=== PATIENT | female | born 1990 | race Caucasian/White ===

== ENCOUNTER 2016-10-11 10:43 | Emergency (ER) | payer OTHER ==
[~2016-10-11] VITALS: Wt 56.0 kg
[~2016-10-11 10:43] MED LIST: ALBU8.5H3 INH; AZIT250T94 PO; IBUP-1542 PO; LOPE2CAP PO; ONDA4TAB8 PO
[2016-10-11] MEDS ORDERED: KETOROLAC 30 MG INJ IV STA (11:08)
[2016-10-11] MEDS ORDERED: SOD CHLORIDE 0.9% 1,000 ML IV ONE (11:30)
[2016-10-11] MEDS ORDERED: METOCLOPRAMIDE 10 MG INJ IV ONE (11:30)
[2016-10-11] MEDS ORDERED: DIPHENHYDRAMINE 50 MG INJ IV ONE (11:30)
[2016-10-11] MEDS ORDERED: NAPR-260 PO (12:24)
--- NOTE | 2016-10-11 17:51 | ERD ---
ER Documentation Chief Complaint Date/Time DATE: 10/11/16 TIME: 17:49 Chief Complaint HEADACHE X1 WEEK, NO INJURY, NO N/V HPI This is a 26-year-old female presents to the ER with a headache for the last week. Headache is located on the left side of her head and radiates to the middle and then to the right side of her head. Patient states that headache has been constant and sometimes more severe than other times. Throbbing in nature patient admits to nausea she denies vomiting. She does admit to photophobia. Patient tried taking Advil however did not work. Patient has never had a headache like this before. She denies any fevers or chills. She denies any head trauma. He denies any head trauma. ROS 12 point review of systems was done, all negative except per HPI. Medications Home Meds Active Scripts Naproxen* (Naprosyn*) 500 Mg Tablet, 500 MG PO BID Y for PAIN AND/OR INFLAMMATION, #30 TAB Prov:SARAH HIGGINS 10/11/16 Ibuprofen* (Motrin*) 600 Mg Tab, 600 MG PO Q6, #30 TAB Prov:OLIMPIA ALBERTS PA-C 05/25/16 Albuterol Sulfate* (Proair HFA*) 8.5 Gm Hfa.aer.ad, 2 PUFF INH Q4, #1 INHALER Prov:OLIMPIA ALBERTS PA-C 05/25/16 Azithromycin* (Zithromax*) 250 Mg Tablet, 250 MG PO .ZPACK DIRECTED, #6 TAB TAKE 500 MG (2 TABS) THE FIRST DAY THEN 250 MG (1 TAB) DAYS 2-5 Prov:OLIMPIA ALBERTS PA-C 05/25/16 Loperamide Hcl* (Imodium*) 2 Mg Capsule, 2 MG PO .AFTER EA LOOSE BM Y for DIARRHEA, #8 TAB Prov:OLIMPIA ALBERTS PA-C 05/25/16 Ondansetron Hcl* (Zofran*) 4 Mg Tablet, 4 MG PO Q6H for NAUSEA AND/OR VOMITING, #30 TAB Prov:OLIMPIA ALBERTS PA-C 05/25/16 Allergies Allergies: Coded Allergies: No Known Allergy (Unverified , 03/03/13) PMhx/Soc Medical and Surgical Hx: pt denies Medical Hx, pt denies Surgical Hx History of Surgery: No Anesthesia Reaction: No Hx Neurological Disorder: No Hx Respiratory Disorders: No Hx Cardiac Disorders: No Hx Psychiatric Problems: No Hx Miscellaneous Medical Probl: No Hx Alcohol Use: Yes (OCCASSIONAL) Hx Substance Use: No Hx Tobacco Use: No Smoking Status: Never smoker Physical Exam Vitals Vital Signs Date Time Temp Pulse Resp B/P Pulse Ox O2 Delivery O2 Flow Rate FiO2 10/11/16 10:48 97.3 94 17 111/56 100 Physical Exam GENERAL: The patient is well developed and appropriate for usual state of health , in no apparent distress. HEENT: Atraumatic. Conjunctivae are pink. Pupils equal, round, and reactive to light. Extraocular muscles are grossly intact. Bilateral tympanic membranes are clear with no evidence of erythema, bulging or perforation. No sinus tenderness. NECK: C-spine is soft and supple. There is no cervical lymphadenopathy. CHEST: Clear to auscultation bilaterally. There are no rales, wheezes or rhonchi. HEART: Regular rate and rhythm. No murmurs, clicks, rubs or gallops. EXTREMITIES: Equal pulses bilaterally. There is no peripheral clubbing, cyanosis or edema. No focal swelling or erythema. Full range of motion. Grossly neurovascularly intact. NEURO: Alert and oriented. Cranial nerves II through XII are intact. Motor strength in all 4 extremities with 5/5 strength. Sensation grossly intact. Normal speech and gait. Negative Rhomberg. +2 DTRs. SKIN: There is no apparent rash or petechia. The skin is warm and dry. Results 24 hrs Current Medications Medications (Trade) Dose Ordered Sig/Tony Route PRN Reason Start Time Stop Time Status Last Admin Dose Admin Sodium Chloride (NS) 1,000 ml @ 1,000 mls/hr Q1H ONCE IV 10/11/16 11:30 10/11/16 12:29 DC 10/11/16 11:35 Ketorolac Tromethamine (Toradol) 30 mg ONCE STAT IV 10/11/16 11:08 10/11/16 11:11 DC 10/11/16 11:35 Metoclopramide HCl (Reglan) 10 mg ONCE ONCE IV 10/11/16 11:30 10/11/16 11:31 DC 10/11/16 11:35 Diphenhydramine HCl (Benadryl) 25 mg ONCE ONCE IV 10/11/16 11:30 10/11/16 11:31 DC 10/11/16 11:35 Procedures/MDM Differential Diagnosis includes but is not limited to; tension headache, migraine headache, cluster headache, sinus headache, nonspecific febrile headache, trigeminal neurologia, subdural hematoma, subarachnoid bleeding, meningitis, encephalitis. Patient is neurologically intact with no focal neurological deficits. This is likely a migraine headache. Patient was given a migraine cocktail and she felt completely better. She is afebrile and well- appearing. Patient will be sent home with naproxen. She is to follow-up with her primary care doctor within 1-2 days or return to ER sooner if symptoms worsen. My medical decision making was shared with the patient she understands and agrees with plan. Departure Diagnosis: Primary Impression: Headache Condition: Stable Patient Instructions: Self-Care for Headaches Additional Instructions: Call your primary care doctor TOMORROW for an appointment during the next 1-2 days.See the doctor sooner or return here if your condition worsens before your appointment time. SARAH HIGGINS Oct 11, 2016 17:51
== END 2016-10-11 12:35 | disposition home or self-care (01) ==
LOC: FTE 10:43
DX: R51 Headache (principal)
CPT/HCPCS: 96374; 96375; J1200; J1885; J2765; J7030; Z7502

== ENCOUNTER 2016-12-02 08:36 | Emergency (ER) | payer OTHER ==
[~2016-12-02] VITALS: Ht 165.1 cm; Wt 54.5 kg
[~2016-12-02 08:36] MED LIST changes: +NAPR-260 PO
[2016-12-02 08:47] VITALS: Ht 165.1 cm; Wt 54.5 kg
[2016-12-02] MEDS ORDERED: traMADol 50 MG TAB PO ONE (10:00)
--- NOTE | 2016-12-02 10:11 | ERD ---
ER Documentation Chief Complaint Date/Time DATE: 12/02/16 TIME: 10:03 Chief Complaint L rib pain and lump x 1 day HPI This is a 26-year-old female who presents to the emergency department today complaining of some left-sided rib pain and a lump that started last night. Patient states she has some shortness of breath and pain. She has not taken any medication for the pain. States that her daughter asked her if she gets stuck in her stomach and she did that and has had pain ever since that time. Denies any fevers or chills. ROS All systems reviewed and are negative except as per history of present illness. Medications Home Meds Active Scripts Naproxen* (Naprosyn*) 500 Mg Tablet, 500 MG PO BID Y for PAIN AND/OR INFLAMMATION, #30 TAB Prov:OLIMPIA ALBERTS PA-C 12/02/16 Acetaminophen* (Tylophen*) 500 Mg Capsule, 1 CAP PO Q6H Y for PAIN AND OR ELEVATED TEMP, #30 CAP Prov:OLIMPIA ALBERTS PA-C 12/02/16 Tramadol HCl (Tramadol HCl) 50 Mg Tablet, 50 MG PO Q4 Y for PAIN, #20 TAB Prov:OLIMPIA ALBERTS PA-C 12/02/16 Naproxen* (Naprosyn*) 500 Mg Tablet, 500 MG PO BID Y for PAIN AND/OR INFLAMMATION, #30 TAB Prov:SARAH HIGGINS 10/11/16 Ibuprofen* (Motrin*) 600 Mg Tab, 600 MG PO Q6, #30 TAB Prov:OLIMPIA ALBERTS PA-C 05/25/16 Albuterol Sulfate* (Proair HFA*) 8.5 Gm Hfa.aer.ad, 2 PUFF INH Q4, #1 INHALER Prov:OLIMPIA ALBERTS PA-C 05/25/16 Azithromycin* (Zithromax*) 250 Mg Tablet, 250 MG PO .ZPACK DIRECTED, #6 TAB TAKE 500 MG (2 TABS) THE FIRST DAY THEN 250 MG (1 TAB) DAYS 2-5 Prov:OLIMPIA ALBERTS PA-C 05/25/16 Loperamide Hcl* (Imodium*) 2 Mg Capsule, 2 MG PO .AFTER EA LOOSE BM Y for DIARRHEA, #8 TAB Prov:OLIMPIA ALBERTS PA-C 05/25/16 Ondansetron Hcl* (Zofran*) 4 Mg Tablet, 4 MG PO Q6H for NAUSEA AND/OR VOMITING, #30 TAB Prov:OLIMPIA ALBERTS PA-C 05/25/16 Allergies Allergies: Coded Allergies: No Known Allergy (Unverified , 03/03/13) PMhx/Soc History of Surgery: No Anesthesia Reaction: No Hx Neurological Disorder: No Hx Respiratory Disorders: No Hx Cardiac Disorders: No Hx Psychiatric Problems: No Hx Miscellaneous Medical Probl: No Hx Alcohol Use: Yes (OCCASSIONAL) Hx Substance Use: No Hx Tobacco Use: No Physical Exam Vitals Vital Signs Date Time Temp Pulse Resp B/P Pulse Ox O2 Delivery O2 Flow Rate FiO2 12/02/16 08:47 98.9 51 18 123/73 95 Physical Exam Const: No acute distress Head: Atraumatic Eyes: Normal Conjunctiva ENT: Normal External Ears, Nose and Mouth. Neck: Full range of motion..~ No meningismus. Resp: Clear to auscultation bilaterally. No absent breath sounds. No wheezing. Tenderness to palpation left side of rib cage. No evidence of lump or ball. Cardio: Regular rate and rhythm, no murmurs Abd: Soft, non tender, non distended. Normal bowel sounds. No left upper quadrant pain. Skin: No petechiae or rashes Neur: Awake and alert Psych: Normal Mood and Affect Results 24 hrs Current Medications Medications (Trade) Dose Ordered Sig/Tony Route PRN Reason Start Time Stop Time Status Last Admin Dose Admin Tramadol HCl (Ultram) 50 mg ONCE ONCE PO 12/02/16 10:00 12/02/16 10:01 DC 12/02/16 09:59 [facility] REPORT Patient: GARRICK HERNANDEZ : 1990 Age: 26 Sex: F MR #: [id number] DOS: 12/02/16 0000 Ordering MD: OLIMPIA ALBERTS PA-C Location: [facility] Room/Bed: PROCEDURE: XR Chest. CLINICAL INDICATION: chest pain, shortness of breath TECHNIQUE: Single frontal view of the chest was obtained COMPARISON: None FINDINGS: The heart and mediastinum are within normal limits. The lungs are clear. There is no pleural effusion or pneumothorax. RPTAT: AA IMPRESSION: No acute disease. .Brooks Kovacs MD, Date Time Electronically viewed and signed by .Brooks Kovacs MD, MD on 12/02/2016 10: 57 .S/ CC: OLIMPIA ALBERTS PA-C Procedures/MDM This is a 26-year-old female who presents to the emergency department today for complaints of left-sided rib pain, a "lump" and some shortness of breath. On physical exam patient has significant tenderness on the left side of her rib at the rib tip. There is no lump or mass present that I am able to palpate. Patient was complaining of shortness of breath and therefore did obtain a chest x-ray. Chest x-ray is negative. Low suspicion for pneumonia, PE, abscess, pneumothorax. Patient symptoms at this time is consistent with costochondritis. Patient has no left upper quadrant pain of low suspicion for an acute problem with her spleen. She is afebrile and otherwise well-appearing. She has had no not complain of any systemic illness recently. Patient was given tramadol here in the emergency department for pain. She was later complaining of some dizziness as she had not had anything to eat. Patient will be given a prescription for Naprosyn Tylenol and tramadol At this time the patient is stable for discharge and outpatient management. Patient should follow up with their PCP in the next 1-2 days. They may return to the emergency department sooner for any persistent or worsening of symptoms. Patient understood and agreed with the plan. Departure Diagnosis: Primary Impression: Rib pain Condition: Fair OLIMPIA ALBERTS PA-C Dec 02, 2016 10:11
--- NOTE | 2016-12-02 10:57 | RADRPT ---
PROCEDURE: XR Chest. CLINICAL INDICATION: chest pain, shortness of breath TECHNIQUE: Single frontal view of the chest was obtained COMPARISON: None FINDINGS: The heart and mediastinum are within normal limits. The lungs are clear. There is no pleural effusion or pneumothorax. RPTAT: AA IMPRESSION: No acute disease. .Brooks Kovacs MD, MD Date Time Electronically viewed and signed by .Brooks Kovacs MD, on 12/02/2016 10:57 .S/
[2016-12-02] MEDS ORDERED: TRAM50TA2 PO (11:04)
[2016-12-02] MEDS ORDERED: ACET500C5 PO (11:05)
[2016-12-02] MEDS ORDERED: NAPR-260 PO (11:05)
== END 2016-12-02 11:23 | disposition home or self-care (01) ==
LOC: FTE 08:36
DX: R07.81 Pleurodynia (principal)
CPT/HCPCS: 71010; Z7502; Z7610

== ENCOUNTER 2016-12-30 19:23 | Emergency (ER) | payer OTHER ==
[~2016-12-30] VITALS: Ht 165.1 cm; Wt 55.5 kg
[~2016-12-30 19:23] MED LIST changes: +ACET500C5 PO; +TRAM50TA2 PO
[2016-12-30 20:11] VITALS: Ht 165.1 cm; Wt 55.5 kg
[2016-12-30 21:00] LABS: URINE BLOOD (Dip) POC Trace-lysed (NEGATIVE)
--- NOTE | 2016-12-30 21:01 | ERD ---
ER Documentation Chief Complaint Date/Time DATE: 12/30/16 TIME: 20:56 Chief Complaint Back injury a week ago at work HPI 26-year-old female presents to the emergency room for lower back pain for about a week. Stated that she injured herself at work. Stated that this happened while she was lifting a mannequin when the mannequin's weight "outbalanced me and its weight put pressure to my lower back, I heard something on my back. My workers comp did an x-ray and they said that I have a low back strain." She denies urinary symptoms. She denies incontinence. She denies loss of bowel and bladder control. Stated that Flexeril and naproxen that she has been prescribed is not working. Denies headache, loss of consciousness, dizziness, blurry vision, changes in vision, photophobia, facial pain, ear pain, throat pain, difficulty swallowing, neck pain, shoulder pain, chest pain, cough, hemoptysis, abdominal pain, back pain, loss of appetite, nausea, vomiting, hematochezia, diarrhea, constipation, urinary symptoms, , the possibility of being , bladder and bowel incontinences, extremity weakness, extremity tenderness, numbness or tingling sensation, difficulty walking, recent travel, recent exposure to illness, recent antibiotic use in the last 3 months, fever, chills. Allergy: No known drug allergies. PMH: Denies. Family medical history: Denies. AO LMP: "About a month ago. I have a Nexplanon." Medications: Flexeril. Naprosyn. Surgery: Denies. 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 Denies smoking, use of alcohol, use of illegal drugs. ROS All systems reviewed and are negative except as per history of present illness. Medications Home Meds Active Scripts Hydrocodone/Acetaminophen (Lincoln 5-325 Tablet) 1 Each Tablet, 1.5 TAB PO Q6H Y for PAIN, #20 TAB Prov:SILVANA JURADO 12/30/16 Naproxen* (Naprosyn*) 500 Mg Tablet, 500 MG PO BID Y for PAIN AND/OR INFLAMMATION, #30 TAB Prov:OLIMPIA ALBERTS PA-C 12/02/16 Acetaminophen* (Tylophen*) 500 Mg Capsule, 1 CAP PO Q6H Y for PAIN AND OR ELEVATED TEMP, #30 CAP Prov:OLIMPIA ALBERTS PA-C 12/02/16 Tramadol HCl (Tramadol HCl) 50 Mg Tablet, 50 MG PO Q4 Y for PAIN, #20 TAB Prov:OLIMPIA ALBERTS PA-C 12/02/16 Naproxen* (Naprosyn*) 500 Mg Tablet, 500 MG PO BID Y for PAIN AND/OR INFLAMMATION, #30 TAB Prov:SARAH HIGGINS 10/11/16 Ibuprofen* (Motrin*) 600 Mg Tab, 600 MG PO Q6, #30 TAB Prov:OLIMPIA ALBERTS PA-C 05/25/16 Albuterol Sulfate* (Proair HFA*) 8.5 Gm Hfa.aer.ad, 2 PUFF INH Q4, #1 INHALER Prov:OLIMPIA ALBERTS PA-C 05/25/16 Azithromycin* (Zithromax*) 250 Mg Tablet, 250 MG PO .ZPACK DIRECTED, #6 TAB TAKE 500 MG (2 TABS) THE FIRST DAY THEN 250 MG (1 TAB) DAYS 2-5 Prov:OLIMPIA ALBERTS PA-C 05/25/16 Loperamide Hcl* (Imodium*) 2 Mg Capsule, 2 MG PO .AFTER EA LOOSE BM Y for DIARRHEA, #8 TAB Prov:OLIMPIA ALBERTS PA-C 05/25/16 Ondansetron Hcl* (Zofran*) 4 Mg Tablet, 4 MG PO Q6H for NAUSEA AND/OR VOMITING, #30 TAB Prov:OLIMPIA ALBERTS PA-C 05/25/16 Allergies Allergies: Coded Allergies: No Known Allergy (Unverified , 03/03/13) PMhx/Soc History of Surgery: No Anesthesia Reaction: No Hx Neurological Disorder: No Hx Respiratory Disorders: No Hx Cardiac Disorders: No Hx Psychiatric Problems: No Hx Miscellaneous Medical Probl: No Hx Alcohol Use: Yes (OCCASSIONAL) Hx Substance Use: No Hx Tobacco Use: No Smoking Status: Never smoker Physical Exam Vitals Vital Signs Date Time Temp Pulse Resp B/P Pulse Ox O2 Delivery O2 Flow Rate FiO2 12/30/16 20:11 99.5 86 18 128/58 100 Physical Exam CONSTITUTIONAL: Well-appearing; well-nourished; in no apparent distress. HEAD: Normocephalic; atraumatic. EYES: Conjunctiva clear, sclera non-icteric, EOM intact. PERRL Ears: Hearing intact. EACs clear, TMs non-bulging, non-inflamed, translucent & mobile, ossicles normal appearance, No obstructions, no erythema, no discharges Nose: No obstructions. No polyps. No external lesions. Mucosa non-inflamed. No external lesions, septum and turbinates normal. No rhinorrhea. No discharges. Frontal sinus is non-tender to palpation. Maxillary sinus is non-tender to palpation. MOUTH: Moist mucous membranes, no lesion, no obstructions, no vesicles, no thrush, patent airway Throat: Uvula in midline. Right tonsil is +1 with no erythema, no exudate. Left tonsil is +1 with no erythema, no exudate. Tolerating secretions well. Good gag reflex. Patent airway. Neck: Supple, without lesions, bruits, or adenopathy. No mass. Thyroid non- enlarged and non-tender to palpation. CHEST: Symmetrical chest. Respirations even and not labored. No retractions noted. CARDIOVASCULAR: Normal S1, S2. RRR. No murmurs, gallops. RESPIRATORY: Normal chest excursion with respiration; breath sounds clear and equal bilaterally; no wheezes, rhonchi, or rales. Breathing even and unlabored. Speaking in clear, full, and complete sentences w/ ease. ABDOMEN: Normal bowel sounds normal. Soft, round, non-distended, non-guarding, no tenderness, no rebound, no organomegaly, no masses, no pulsating abdominal mass. No hernia. No peritoneal signs. : No CVA tenderness. BACK: Symmetrical shoulder. Spine is midline without deformity, tenderness. No evidence of trauma or deformity. PELVIS: Stable pelvis. No evidence of trauma or deformity. MUSCULOSKELETAL: Normal gait and station. No misalignment, asymmetry, crepitation, defects, tenderness, masses, effusions, decreased range of motion, instability, atrophy or abnormal strength or tone in the head, neck, ribs, pelvis or extremities except tenderness to lumbar area. Positive on left straight leg test. No calf tenderness. NEUROVASCULAR: Distal pulses are present. Pedal pulse are present, equal, and normal. Capillary refills are < 2 seconds. NEUROLOGIC: Alert and oriented x4. Speaks full and clear sentences. Cranial Nerves II-XII normal. Sensation to pain, touch, and proprioception normal. Grossly unremarkable. No neurologic deficits. Romberg test is negative. Patient denies incontinence. She denies loss of bowel and bladder control. PSYCHOLOGICAL: The patients mood and manner are appropriate. No hallucinations , delusions. Not SI. Not HI. Has the capacity to decide for self SKIN: Normal for age and ethnicity; warm; dry; good turgor; no apparent lesions or exudates. No rashes, hives, discoloration. Intact. Results 24 hrs Laboratory Tests Test 12/30/16 21:00 Bedside Urine pH (LAB) 7.0 Bedside Urine Protein (LAB) Negative Bedside Urine Glucose (UA) Negative Bedside Urine Ketones (LAB) Negative Bedside Urine Blood Trace-lysed Bedside Urine Nitrite (LAB) Negative Bedside Urine Leukocyte Esterase (L 1+ Current Medications Medications (Trade) Dose Ordered Sig/Tony Route PRN Reason Start Time Stop Time Status Last Admin Dose Admin Ketorolac Tromethamine (Toradol) 30 mg ONCE STAT IM 12/30/16 21:02 12/30/16 21:03 DC 12/30/16 21:37 Procedures/MDM Examination: Please see physical examination. Disease process, medical treatment was explained to the patient and family member. They verbalized understanding and agreed with the diagnostic tests, medical treatment, and follow-up care. POC urine : Urinalysis: Treatment: Toradol IM. Re-evaluation: Denies back pain. No numbness or tingling. No neurological deficits. Stated she feels much better at this time. Consultation: Differential diagnosis: Low back strain versus sciatica. Medical decision makin-year-old female presents to the emergency room for lower back pain for about a week. Stated that she injured herself at work. Stated that this happened while she was lifting a mannequin when the mannequin' s weight "outbalanced me and its weight put pressure to my lower back, I heard something on my back. My workers comp did an x-ray and they said that I have a low back strain." She denies urinary symptoms. She denies incontinence. She denies loss of bowel and bladder control. Stated that Flexeril and naproxen that she has been prescribed is not working. Patient's complaint, patient's history about her complaint, my physical findings, my reevaluation are consistent with my final diagnosis of low back strain, sciatica. I discussed this case with supervising emergency room physician, Dr. Charly Luna agreed with my medical decision making. She also stated that I do not need to do a CT scan for this. Medications prescribed are the following: Lincoln. Patient and family member are made aware of the side effects and adverse reactions of the medications prescribed. Instructed on when to seek emergent and medical attention in case allergic/anaphylactic reactions or severe side effects and or adverse reactions to medications. Patient and family member verbalized understanding. Patient instructed Instructed to follow-up with his PCP in 24-48 hours. Patient stated that she will see her primary care physician the next 24 hours. Instructed to Call 911 for chest pain, shortness of breath. Advised to come back here in ED as soon as possible for severity of symptoms which includes but not limited to: any new symptoms; shortness of breath/difficulty of breathing; cardiovascular changes; severe gastrointestinal symptoms; signs and symptoms of bleeding and or infection; signs of compartment syndrome/neurovascular changes; neurological changes/deficits. Patient and family member verbalized understanding. Upon discharge, patient is alert and oriented x 4, speaks full and clear sentences, denies pain, has no neurological deficits, has no neurovascular deficits, difficulty of breathing. Breathing even and unlabored. Lung sounds are clear to auscultation. Not in distress. Appears comfortable. Ambulatory with steady gait. Appears satisfied with care provided here in ED. Departure Diagnosis: Primary Impression: Sciatica Additional Impression: Low back strain Condition: Stable Additional Instructions: Follow-up with PCP in the next 24-48 hours. Patient stated that she will make sure to see her own primary care physician the next 24 hours. SILVANA JURADO Dec 30, 2016 21:01
[2016-12-30] MEDS ORDERED: KETOROLAC 30 MG INJ IM STA (21:02)
[2016-12-30] MEDS ORDERED: HYDR-906 PO (21:11)
== END 2016-12-30 22:02 | disposition home or self-care (01) ==
LOC: FTE 19:23
DX: S39.92XA Unspecified injury of lower back, initial encounter (principal); X50.0XXA Overexertion from strenuous movement or load, initial encounter; Y92.89 Other specified places as the place of occurrence of the external cause
CPT/HCPCS: 81003; J1885; 96372

== ENCOUNTER 2017-03-08 03:32 | Emergency (ER) | payer OTHER ==
[~2017-03-08] VITALS: Ht 165.1 cm; Wt 56.0 kg
[~2017-03-08 03:32] MED LIST changes: +HYDR-906 PO
[2017-03-08 03:38] VITALS: Ht 165.1 cm; Wt 56.0 kg
[2017-03-08] MEDS ORDERED: ALPRAZOLAM 1 MG TAB PO ONE (04:30)
[2017-03-08] MEDS ORDERED: ALPR0.25 PO (05:10)
--- NOTE | 2017-03-08 05:35 | ERD ---
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 Patient admits to be very anxious, is going through a lot of stress lately, patient recently lost her job. Patient denies any palpitations or regular heartbeat. Patient denies any chest pain. Patient denies any dyspnea on exertion or dyspnea on lying down. ROS All systems reviewed and are negative except as per history of present illness. Medications Home Meds Active Scripts Alprazolam* (Xanax*) 0.25 Mg Tablet, 0.25 MG PO Q8H Y for ANXIETY, #10 TAB Prov:EVANGELINA FELIX NP 03/08/17 Hydrocodone/Acetaminophen ([place] 5-325 Tablet) 1 Each Tablet, 1.5 TAB PO Q6H Y for PAIN, #20 TAB Prov:SILVANA JURADO 12/30/16 Naproxen* (Naprosyn*) 500 Mg Tablet, 500 MG PO BID Y for PAIN AND/OR INFLAMMATION, #30 TAB Prov:OLIMPIA ALBERTS PA-C 12/02/16 Acetaminophen* (Tylophen*) 500 Mg Capsule, 1 CAP PO Q6H Y for PAIN AND OR ELEVATED TEMP, #30 CAP Prov:OLIMPIA ALBERTS PA-C 12/02/16 Tramadol HCl (Tramadol HCl) 50 Mg Tablet, 50 MG PO Q4 Y for PAIN, #20 TAB Prov:OLIMPIA ALBERTS PA-C 12/02/16 Naproxen* (Naprosyn*) 500 Mg Tablet, 500 MG PO BID Y for PAIN AND/OR INFLAMMATION, #30 TAB Prov:SARAH HIGGINS 10/11/16 Ibuprofen* (Motrin*) 600 Mg Tab, 600 MG PO Q6, #30 TAB Prov:OLIMPIA ALBERTS PA-C 05/25/16 Albuterol Sulfate* (Proair HFA*) 8.5 Gm Hfa.aer.ad, 2 PUFF INH Q4, #1 INHALER Prov:OLIMPIA ALBERTS PA-C 05/25/16 Azithromycin* (Zithromax*) 250 Mg Tablet, 250 MG PO .ZPACK DIRECTED, #6 TAB TAKE 500 MG (2 TABS) THE FIRST DAY THEN 250 MG (1 TAB) DAYS 2-5 Prov:OLIMPIA ALBERTS PA-C 05/25/16 Loperamide Hcl* (Imodium*) 2 Mg Capsule, 2 MG PO .AFTER EA LOOSE BM Y for DIARRHEA, #8 TAB Prov:OLIMPIA ALBERTS PA-C 05/25/16 Ondansetron Hcl* (Zofran*) 4 Mg Tablet, 4 MG PO Q6H for NAUSEA AND/OR VOMITING, #30 TAB Prov:OLIMPIA ALBERTS PA-C 05/25/16 Allergies Allergies: Coded Allergies: No Known Allergy (Unverified , 03/03/13) PMhx/Soc History of Surgery: No Anesthesia Reaction: No Hx Neurological Disorder: No Hx Respiratory Disorders: No Hx Cardiac Disorders: No Hx Psychiatric Problems: No Hx Miscellaneous Medical Probl: No Hx Alcohol Use: Yes (OCCASSIONAL) Hx Substance Use: No Hx Tobacco Use: No Smoking Status: Never smoker FmHx Family History: No coronary disease, No diabetes, No other Physical Exam Vitals Vital Signs Date Time Temp Pulse Resp B/P Pulse Ox O2 Delivery O2 Flow Rate FiO2 03/08/17 03:38 98.7 89 18 129/66 100 Physical Exam GENERAL: The patient is well developed and appropriate for usual state of health, in no apparent distress. CHEST: Clear to auscultation bilaterally. There are no rales, wheezes or rhonchi. HEART: Regular rate and rhythm. No murmurs, clicks, rubs or gallops. No S3 or S4. ABDOMEN: Soft, nontender and nondistended. Good bowel sounds. No rebound or guarding. No gross peritonitis. No gross organomegaly or masses. No Ga sign or McBurney point tenderness. BACK: No midline or flank tenderness. EXTREMITIES: Equal pulses bilaterally. There is no peripheral clubbing, cyanosis or edema. No focal swelling or erythema. Full range of motion. Grossly neurovascularly intact. NEURO: Alert and oriented. Cranial nerves 2-12 intact. Motor strength in all 4 extremities with 5/5 strength. Sensation grossly intact. Normal speech and gait. SKIN: There is no apparent rash or petechia. The skin is warm and dry. HEMATOLOGIC AND LYMPHATIC: There is no evidence of excessive bruising or lymphedema. No gross cervical, axillary, or inguinal lymphadenopathy. PSYCHIATRIC: Patient cooperative but is anxious, crying, shaking. Patient does not verbalize suicidal or homicidal ideation Results 24 hrs Current Medications Medications (Trade) Dose Ordered Sig/Tony Route PRN Reason Start Time Stop Time Status Last Admin Dose Admin Alprazolam (Xanax) 1 mg ONCE ONCE PO 03/08/17 04:30 03/08/17 04:31 DC 03/08/17 04:36 xanax was given here in emergency department, progressed very much better afterwards. Procedures/MDM Medical decision making: Patient symptoms most likely is consistent with anxiety. Low suspicion for any cardiopulmonary emergency, neurologic emergencies , patient's has no cardiac history, no risk factors. No suspicion for psychiatric emergencies, patient does not have any symptoms of homicidal or suicidal ideations. Patient was given for Xanax for help with her anxiety, is advised to follow-up with his Specialist for management of anxiety. Patient is advised to return to emergency department for any worsening symptoms Departure Diagnosis: Primary Impression: Anxiety Condition: Stable Patient Instructions: Anxiety Reaction Referrals: [facility] YOU HAVE RECEIVED A MEDICAL SCREENING EXAM AND THE RESULTS INDICATE THAT YOU DO NOT HAVE A CONDITION THAT REQUIRES URGENT TREATMENT IN THE EMERGENCY DEPARTMENT. FURTHER EVALUATION AND TREATMENT OF YOUR CONDITION CAN WAIT UNTIL YOU ARE SEEN IN YOUR DOCTORS OFFICE WITHIN THE NEXT 1-2 DAYS. IT IS YOUR RESPONSIBILITY TO MAKE AN APPOINTMENT FOR FOLOW-UP CARE. IF YOU HAVE A PRIMARY DOCTOR --you should call your primary doctor and schedule an appointment IF YOU DO NOT HAVE A PRIMARY DOCTOR YOU CAN CALL OUR PHYSICIAN REFERRAL HOTLINE AT IF YOU CAN NOT AFFORD TO SEE A PHYSICIAN YOU CAN CHOSE FROM THE FOLLOWING [facility] [address] [facility] [address] [facility]. [facility] [address] [facility] [address] [facility] [address] [facility] [address] [facility]. [facility] YOU HAVE RECEIVED A MEDICAL SCREENING EXAM AND THE RESULTS INDICATE THAT YOU DO NOT HAVE A CONDITION THAT REQUIRES URGENT TREATMENT IN THE EMERGENCY DEPARTMENT. FURTHER EVALUATION AND TREATMENT OF YOUR CONDITION CAN WAIT UNTIL YOU ARE SEEN IN YOUR DOCTORS OFFICE WITHIN THE NEXT 1-2 DAYS. IT IS YOUR RESPONSIBILITY TO MAKE AN APPOINTMENT FOR FOLOW-UP CARE. IF YOU HAVE A PRIMARY DOCTOR --you should call your primary doctor and schedule and appointment IF YOU DO NOT HAVE A PRIMARY DOCTOR YOU CAN CALL OUR PHYSICIAN REFERRAL HOTLINE AT . IF YOU CAN NOT AFFORD TO SEE A PHYSICIAN YOU CAN CHOSE FROM THE FOLLOWING [facility]: [facility] [address] [place] [address] [facility] [address] [place] [address] [facility] [address] [place] [address] EVANGELINA FELIX NP Mar 08, 2017 05:35
== END 2017-03-08 05:42 | disposition home or self-care (01) ==
LOC: FTE 03:32
DX: F41.9 Anxiety disorder, unspecified (principal)
CPT/HCPCS: Z7502; Z7610; 99283

== ENCOUNTER 2017-11-21 08:25 | Emergency (ER) | END 2017-11-21 13:23 | disposition home or self-care (01) ==

== ENCOUNTER 2018-01-10 17:45 | Emergency (ER) | END 2018-01-10 21:23 | disposition home or self-care (01) ==

== ENCOUNTER 2018-01-11 08:37 | Emergency (ER) | END 2018-01-11 11:10 | disposition home or self-care (01) ==

== ENCOUNTER 2018-05-12 20:29 | Emergency (ER) | END 2018-05-12 21:20 | disposition home or self-care (01) ==

== ENCOUNTER 2018-06-15 21:19 | Emergency (ER) | END 2018-06-15 22:40 | disposition home or self-care (01) ==

== ENCOUNTER 2018-06-28 18:18 | Emergency (ER) | END 2018-06-28 20:54 | disposition home or self-care (01) ==

== ENCOUNTER 2018-08-03 06:33 | Day surgery (SDC) | END 2018-08-03 17:34 | disposition home or self-care (01) ==

== ENCOUNTER 2018-08-08 09:25 | Emergency (ER) | END 2018-08-08 10:25 | disposition home or self-care (01) ==

== ENCOUNTER 2018-08-29 15:27 | Emergency (ER) | END 2018-08-29 18:44 | disposition home or self-care (01) ==

== ENCOUNTER 2019-01-11 19:02 | Emergency (ER) | payer OTHER ==
[~2019-01-11] VITALS: Ht 165.1 cm; Wt 61.7 kg
[~2019-01-11 19:02] MED LIST changes: -ALBU8.5H3 INH; +ALBU8.5H8 INH; +ALPR0.25 PO; +AZIT250T PO; -AZIT250T94 PO; +BACL10TA PO; +BEN25 PO; +CEPH-443 PO; +D-ME473S2 PO; +DIPH28.33 TP; +HYDR-4011 PO; -HYDR-906 PO; +IBUP-1561 PO; +LORA-441 PO; +MECL12.574 PO; +MUPI22OI2 TOP; -NAPR-260 PO; +NAPR-985 PO; +NPH10OT LEFT EAR; +OSEL75CA23 PO
[2019-01-11 19:06] VITALS: Ht 165.1 cm; Wt 61.7 kg
--- NOTE | 2019-01-11 21:10 | ERD ---
ER Documentation Chief Complaint Chief Complaint MONROE x1 week w/ CP and lower AP, no n/v/d HPI This is a 28-year-old female who presented emergency department with complaints of headache that is on and off for about a week with chest pain that is reproducing, also complains of lower abdominal pain. LMP: 12/26/2018. . Denies headache, head injury, loss of consciousness, dizziness, neck pain, neck stiffness, throat pain, difficulty swallowing, difficulty breathing lying flat, shoulder pain, chest pain, back pain, abdominal pain, nausea, vomiting, constipation, diarrhea, urinary symptoms, or possibility being , loss of bowel and bladder control, trauma, injury, falls, difficulty walking due to pain, numbness or tingling sensation, calf pain, recent travel, recent major surgery in the last 3 weeks, calf pain, recent long travel, recent exposure to any illness, recent antibiotic use in the last 3 months, fever, chills, seizures. Past medical history: Surgical history: Social: Denies smoking, use of alcoholic beverages, use of illegal drugs. ROS All systems reviewed and are negative except as per history of present illness. Medications Home Meds Active Scripts Hydroxyzine Hcl* (Hydroxyzine Hcl*) 50 Mg Tablet, 50 MG PO Q6H PRN for ANXIETY, #30 TAB Prov:SILVANA JURADO 01/11/19 Ibuprofen* (Motrin*) 600 Mg Tab, 600 MG PO Q6H PRN for PAIN AND OR ELEVATED TEMP, #30 TAB Prov:SILVANA JURADO 01/11/19 Baclofen* (Baclofen*) 10 Mg Tablet, 10 MG PO TID for 5 Days, #15 TAB Prov:JOSE GUADALUPE SUAREZ MD 08/29/18 Ibuprofen* (Motrin*) 400 Mg Tab, 400 MG PO Q8 for 5 Days, #15 TAB Prov:JOSE GUADALUPE SUAREZ MD 08/29/18 Ibuprofen* (Motrin*) 600 Mg Tab, 600 MG PO Q6H PRN for PAIN AND OR ELEVATED TEMP, #30 TAB Prov:LAURA DELA CRUZ NP 08/08/18 Tramadol HCl (Tramadol HCl) 50 Mg Tablet, 50 MG PO Q6 PRN for SEVERE PAIN LEVEL 7-10, #20 TAB Prov:EVANGELINA FELIX NP 06/15/18 Ibuprofen* (Motrin*) 600 Mg Tab, 600 MG PO Q6H PRN for PAIN AND OR ELEVATED TEMP, #30 TAB Prov:EVANGELINA FELIX NP 06/15/18 Cephalexin* (Keflex*) 500 Mg Capsule, 500 MG PO QID for 5 Days, CAP Prov:EVANGELINA FELIX NP 06/15/18 Diphenhydramine Hcl* (Benadryl*) 25 Mg Cap, 25 MG PO Q6, #30 CAP Prov:YFN ALTAMIRANO PA-C 05/12/18 Diphenhydramine Hcl/Zinc Acet (Benadryl Itch Stopping Crm) 28.3 Gm Cream.gm., 1 APPLIC TP TID, #1 TUB Prov:YFN ALTAMIRANO PA-C 05/12/18 Mupirocin* (Bactroban*) 2% -22 Gram Oint...g., 1 APPLIC TOP BID for 7 Days, EA Prov:YFN ALTAMIRANO PA-C 05/12/18 Ibuprofen* (Motrin*) 600 Mg Tab, 600 MG PO Q6, #30 TAB Prov:YFN ALTAMIRANO PA-C 05/12/18 Neomycin/Polymyxin/Hydrocort* (Cortisporin* Otic) 10 Ml Susp, 4 DROP LEFT EAR QID for 7 Days, EA Prov:JOSE GUADALUPE SUAREZ MD 01/10/18 Lorazepam* (Ativan*) 0.5 Mg Tablet, 0.5 MG PO Q8H PRN for ANXIETY, #10 TAB Prov:JOSE GUADALUPE SUAREZ MD 01/10/18 Meclizine Hcl* (Antivert*) 12.5 Mg Tab, 12.5 MG PO Q8 PRN for DIZZINESS for 5 Days, #15 TAB Prov:JOSE GUADALUPE SUAREZ MD 01/10/18 Oseltamivir Phosphate* (Tamiflu*) 75 Mg Capsule, 75 MG PO BID for 5 Days, CAP Prov:AAMIR CARBAJAL MD 11/21/17 Dextromethorphan Hb-Promethazine Hcl* (Promethazine DM* Syrup) 473 Ml Syrup, 5 ML PO Q6 PRN for COUGH for 5 Days, ML Prov:AAMIR CARBAJAL MD 11/21/17 Ibuprofen* (Motrin*) 400 Mg Tab, 400 MG PO Q6, #15 TAB Prov:AAMIR CARBAJAL MD 11/21/17 Alprazolam* (Xanax*) 0.25 Mg Tablet, 0.25 MG PO Q8H PRN for ANXIETY, #10 TAB Prov:EVANGELINA FELIX NP 03/08/17 Hydrocodone/Acetaminophen ([place] 5-325 Tablet) 1 Each Tablet, 1.5 TAB PO Q6H PRN for PAIN, #20 TAB Prov:SILVANA JURADO 12/30/16 Naproxen* (Naprosyn*) 500 Mg Tablet, 500 MG PO BID PRN for PAIN AND/OR INFLAMMATION, #30 TAB Prov:OLIMPIA ALBERTS PA-C 12/02/16 Acetaminophen* (Tylophen*) 500 Mg Capsule, 1 CAP PO Q6H PRN for PAIN AND OR ELEVATED TEMP, #30 CAP Prov:OLIMPIA ALBERTS PA-C 12/02/16 Tramadol HCl (Tramadol HCl) 50 Mg Tablet, 50 MG PO Q4 PRN for PAIN, #20 TAB Prov:OLIMPIA ALBERTS PA-C 12/02/16 Naproxen* (Naprosyn*) 500 Mg Tablet, 500 MG PO BID PRN for PAIN AND/OR INFLAMMATION, #30 TAB Prov:SARAH HIGGINS 10/11/16 Ibuprofen* (Motrin*) 600 Mg Tab, 600 MG PO Q6, #30 TAB Prov:OLIMPIA ALBERTS PA-C 05/25/16 Albuterol Sulfate* (Proair HFA*) 8.5 Gm Hfa.aer.ad, 2 PUFF INH Q4, #1 INHALER Prov:OLIMPIA ALBERTS PA-C 05/25/16 Azithromycin* (Zithromax*) 250 Mg Tablet, 250 MG PO .DestinyPACK DIRECTED, #6 TAB TAKE 500 MG (2 TABS) THE FIRST DAY THEN 250 MG (1 TAB) DAYS 2-5 Prov:OLIMPIA ALBERTS PA-C 05/25/16 Loperamide Hcl* (Imodium*) 2 Mg Capsule, 2 MG PO .AFTER EA LOOSE BM PRN for DIARRHEA, #8 TAB Prov:ARISTEOJESUSNancy De Oliveira PA-C 05/25/16 Ondansetron Hcl* (Zofran*) 4 Mg Tablet, 4 MG PO Q6H for NAUSEA AND/OR VOMITING, #30 TAB Prov:OLIMPIA QUINTANA Yennifer THOMAS 05/25/16 Allergies Allergies: Coded Allergies: No Known Allergy (Unverified , 03/03/13) PMhx/Soc History of Surgery: Yes (left breast lump removal) Anesthesia Reaction: No Hx Neurological Disorder: No Hx Respiratory Disorders: No Hx Cardiac Disorders: No Hx Psychiatric Problems: Yes (ANXIETY AND DEPRESSION) Hx Miscellaneous Medical Probl: Yes (l. breast mass, anxiety depression ) Hx Alcohol Use: No Hx Substance Use: No Hx Tobacco Use: No Physical Exam Vitals Vital Signs Date Temp Pulse Resp B/P (MAP) Pulse Ox O2 O2 Flow FiO2 Time Delivery Rate 01/11/19 98.8 70 16 118/71 99 Room Air 22:45 (87) 01/11/19 98.9 80 16 115/65 99 19:06 (82) Physical Exam Const: No acute distress Head: Atraumatic Eyes: Normal Conjunctiva ENT: Normal External Ears, Nose and Mouth. Bilateral ears: TMs are not erythematous with no bleeding. No discharge with no hearing loss. No mastoid tenderness. Nose: There is frontal and maxillary sinus tenderness to palpation. Throat: Uvula is at midline and nondisplaced. Tonsils are +1 bilaterally without redness without exudates. Tolerating secretions. Patent airway. Speaks full and clear sentences. No tripoding. Neck: Full range of motion. No meningismus. No nuchal rigidity no signs of meningeal irritation. Resp: Clear to auscultation bilaterally. No accessory muscle use in breathing. Cardio: Regular rate and rhythm, no murmurs Abd: Soft, non tender, non distended. Normal bowel sounds. Negative Ga sign but negative [place] sign (heel jar test). Negative psoas sign. Negative Rovsing sign. Able to jump 5 times without developing lower abdominal pain. Skin: No petechiae or rashes. Color appears normal for ethnicity. No skin tenting. No signs of severe dehydration. Back: No midline or flank tenderness. No CVA tenderness. Ext: No cyanosis, or edema Neur: Awake and alert. Romberg test negative. No neurological deficits. Psych: Normal Mood and Affect Results 24 hrs Laboratory Tests Test 01/11/19 21:07 Urine Color YELLOW Urine Clarity SLIGHTLY CLOUDY Urine pH 7.0 Urine Specific [place] 1.024 Urine Ketones NEGATIVE mg/dL Urine Nitrite NEGATIVE mg/dL Urine Bilirubin NEGATIVE mg/dL Urine Urobilinogen 1+ mg/dL Urine Leukocyte Esterase TRACE Ganesh/ul Urine Microscopic RBC 2 /HPF Urine Microscopic WBC 3 /HPF Urine Squamous Epithelial Cells FEW /HPF Urine Hemoglobin NEGATIVE mg/dL Urine Glucose NEGATIVE mg/dL Urine Total Protein NEGATIVE mg/dl Urine Test NEGATIVE Current Medications Medications Dose Sig/Tony Start Time Status Last (Trade) Ordered Route PRN Stop Time Admin Dose Reason Admin Meclizine 12.5 mg ONCE ONCE 01/11/19 DC HCl PO 21:30 (Antivert) 01/11/19 21:31 Ibuprofen 600 mg ONCE ONCE 01/11/19 DC 01/11/19 (Motrin) PO 22:30 22:39 01/11/19 22:31 Lorazepam 1 mg ONCE ONCE 01/11/19 DC (Ativan) PO 22:30 01/11/19 22:31 Procedures/MDM Diagnostic tests: HCG urine: Negative. Urinalysis: Negative. Culture urine: Treatment: Antivert. Motrin. Ativan. Re-evaluation: Denies chest pain. Denies auditory/visual hallucinations/delusions. Not suicidal. Not homicidal. Has the capacity to decide for herself. Has good support system at home. Differential diagnosis I have low suspicion for sepsis, meningitis, peritonsillar abscess, acute microinfarction, acute coronary syndrome, anemia. Final diagnosis: Viral sinusitis. Anxiety. Prescription: Motrin. Hydroxyzine. Follow-up with PCP in the next 24-48 hours. Come back here in the emergency department for any new symptoms or any worsening symptoms. All questions and concerns were answered. Patient and family members verbalized understanding and agreed with plan of care. Hemodynamically stable on discharge. Departure Diagnosis: Primary Impression: Multiple complaints Additional Impressions: Viral sinusitis Anxiety Costochondritis Condition: Stable Additional Instructions: Follow-up with PCP in the next 24-48 hours. Come back here in the emergency department for any new symptoms or any worsening symptoms. SILVANA JURADO Jan 11, 2019 21:10
[2019-01-11] MEDS ORDERED: MECLIZINE 12.5 MG TAB PO ONE (21:30)
[2019-01-11] MEDS ORDERED: IBUP-1542 PO (22:29)
[2019-01-11] MEDS ORDERED: LORAZEPAM 1 MG TAB PO ONE (22:30)
[2019-01-11] MEDS ORDERED: IBUPROFEN 600 MG TAB PO ONE (22:30)
[2019-01-11] MEDS ORDERED: HYDR50TA15 PO (22:30)
[2019-01-11 22:45] VITALS: BP 118/71; PULSE 70; RESP 16
== END 2019-01-11 22:45 | disposition home or self-care (01) ==
LOC: FTE 19:02
DX: M94.0 Chondrocostal junction syndrome [Tietze] (principal); J32.9 Chronic sinusitis, unspecified; F41.9 Anxiety disorder, unspecified
CPT/HCPCS: 81001; 84703; 87086; Z7502; Z7610; 99283

== ENCOUNTER 2019-01-22 15:03 | Emergency (ER) | payer OTHER ==
[~2019-01-22] VITALS: Ht 167.6 cm; Wt 61.0 kg
[~2019-01-22 15:03] MED LIST changes: +HYDR50TA15 PO
[2019-01-22 15:15] VITALS: BP 111/56; PULSE 69; RESP 18; Ht 167.6 cm; Wt 61.0 kg
[2019-01-22] MEDS ORDERED: ACETAMINOPHEN 325 MG TAB PO STA (16:25)
--- NOTE | 2019-01-22 17:29 | ERD ---
ER Documentation Chief Complaint Chief Complaint vag bleeding pelvic cramping am, 5wks LMP 12/26/18 HPI G4, P3 female in her fifth week of presents with complaint of abdominal pain and vaginal bleeding started today. States that she is noticed the blood in her urine when she wipes but is not going through pads. States that she does have an OB. Denies any nausea, vomiting, diarrhea, fevers, dysuria, flank pain. Denies medical problems. Denies allergies. ROS All systems reviewed and are negative except as per history of present illness. Medications Home Meds Active Scripts Acetaminophen* (Tylophen*) 500 Mg Capsule, 2 CAP PO Q8H PRN for PAIN AND OR EL EVATED TEMP, #20 CAP Prov:CECILIO GARNER 01/22/19 Hydroxyzine Hcl* (Hydroxyzine Hcl*) 50 Mg Tablet, 50 MG PO Q6H PRN for ANXIETY, #30 TAB Prov:SILVANA JURADO 01/11/19 Ibuprofen* (Motrin*) 600 Mg Tab, 600 MG PO Q6H PRN for PAIN AND OR ELEVATED TEMP, #30 TAB Prov:SILVANA JURADO F 01/11/19 Baclofen* (Baclofen*) 10 Mg Tablet, 10 MG PO TID for 5 Days, #15 TAB Prov:JOSE GUADALUPE SUAREZ MD 08/29/18 Ibuprofen* (Motrin*) 400 Mg Tab, 400 MG PO Q8 for 5 Days, #15 TAB Prov:JOSE GUADALUPE SUAREZ MD 08/29/18 Ibuprofen* (Motrin*) 600 Mg Tab, 600 MG PO Q6H PRN for PAIN AND OR ELEVATED TE MP, #30 TAB Prov:LAURA DELA CRUZ NP 08/08/18 Tramadol HCl (Tramadol HCl) 50 Mg Tablet, 50 MG PO Q6 PRN for SEVERE PAIN LEVEL 7-10, #20 TAB Prov:EVANGELINA FELIX NP 06/15/18 Ibuprofen* (Motrin*) 600 Mg Tab, 600 MG PO Q6H PRN for PAIN AND OR ELEVATED TEM P, #30 TAB Prov:EVANGELINA FELIX NP 06/15/18 Cephalexin* (Keflex*) 500 Mg Capsule, 500 MG PO QID for 5 Days, CAP Prov:EVANGELINA FELIX MAE T. DUAL RATE SUPERVISOR 06/15/18 Diphenhydramine Hcl* (Benadryl*) 25 Mg Cap, 25 MG PO Q6, #30 CAP Prov:PIERRE ALTAMIRANOMOUSTAPHA THOMAS 05/12/18 Diphenhydramine Hcl/Zinc Acet (Benadryl Itch Stopping Crm) 28.3 Gm Cream.gm., 1 APPLIC TP TID, #1 TUB Prov:ADARSHYFN THOMAS 05/12/18 Mupirocin* (Bactroban*) 2% -22 Gram Oint...g., 1 APPLIC TOP BID for 7 Days, EA Prov:ADARSHYFN THOMAS 05/12/18 Ibuprofen* (Motrin*) 600 Mg Tab, 600 MG PO Q6, #30 TAB Prov:ADARSHYFN THOMAS 05/12/18 Neomycin/Polymyxin/Hydrocort* (Cortisporin* Otic) 10 Ml Susp, 4 DROP LEFT EAR QID for 7 Days, EA Prov:JOSE GUADALUPE SUAREZ MD 01/10/18 Lorazepam* (Ativan*) 0.5 Mg Tablet, 0.5 MG PO Q8H PRN for ANXIETY, #10 TAB Prov:JOSE GUADALUPE SUAREZ MD 01/10/18 Meclizine Hcl* (Antivert*) 12.5 Mg Tab, 12.5 MG PO Q8 PRN for DIZZINESS for 5 Days, #15 TAB Prov:JOSE GUADALUPE SUAREZ MD 01/10/18 Oseltamivir Phosphate* (Tamiflu*) 75 Mg Capsule, 75 MG PO BID for 5 Days, CAP Prov:AAMIR CARBAJAL MD 11/21/17 Dextromethorphan Hb-Promethazine Hcl* (Promethazine DM* Syrup) 473 Ml Syrup, 5 ML PO Q6 PRN for COUGH for 5 Days, ML Prov:AAMIR CARBAJAL MD 11/21/17 Ibuprofen* (Motrin*) 400 Mg Tab, 400 MG PO Q6, #15 TAB Prov:AAMIR CARBAJAL MD 11/21/17 Alprazolam* (Xanax*) 0.25 Mg Tablet, 0.25 MG PO Q8H PRN for ANXIETY, #10 TAB Prov:ELVIRAEVANGELINAMargarita Galvan NP 03/08/17 Hydrocodone/Acetaminophen ([place] 5-325 Tablet) 1 Each Tablet, 1.5 TAB PO Q6H PRN for PAIN, #20 TAB Prov:SILVANA JURADO 12/30/16 Naproxen* (Naprosyn*) 500 Mg Tablet, 500 MG PO BID PRN for PAIN AND/OR INFLAMMATION, #30 TAB Prov:OLIMPIA ALBERTS PA-C 12/02/16 Acetaminophen* (Tylophen*) 500 Mg Capsule, 1 CAP PO Q6H PRN for PAIN AND OR ELEVATED TEMP, #30 CAP Prov:OLIMPIA ALBERTS PA-C 12/02/16 Tramadol HCl (Tramadol HCl) 50 Mg Tablet, 50 MG PO Q4 PRN for PAIN, #20 TAB Prov:OLIMPIA ALBERTS PA-C 12/02/16 Naproxen* (Naprosyn*) 500 Mg Tablet, 500 MG PO BID PRN for PAIN AND/OR INFLAMMATION, #30 TAB Prov:SARAH HIGGINS 10/11/16 Ibuprofen* (Motrin*) 600 Mg Tab, 600 MG PO Q6, #30 TAB Prov:OLIMPIA ALBERTS PA-C 05/25/16 Albuterol Sulfate* (Proair HFA*) 8.5 Gm Hfa.aer.ad, 2 PUFF INH Q4, #1 INHALER Prov:OLIMPIA ALBERTS PA-C 05/25/16 Azithromycin* (Zithromax*) 250 Mg Tablet, 250 MG PO .KELCK DIRECTED, #6 TAB TAKE 500 MG (2 TABS) THE FIRST DAY THEN 250 MG (1 TAB) DAYS 2-5 Prov:OLIMPIA ALBERTS PA-C 05/25/16 Loperamide Hcl* (Imodium*) 2 Mg Capsule, 2 MG PO .AFTER EA LOOSE BM PRN for DIARRHEA, #8 TAB Prov:OLIMPIA ALBERTS PA-C 05/25/16 Ondansetron Hcl* (Zofran*) 4 Mg Tablet, 4 MG PO Q6H for NAUSEA AND/OR VOMITING, #30 TAB Prov:OLIMPIA ALBERTS PA-C 05/25/16 Allergies Allergies: Coded Allergies: No Known Allergy (Unverified , 03/03/13) PMhx/Soc History of Surgery: Yes (left breast lump removal) Anesthesia Reaction: No Hx Neurological Disorder: No Hx Respiratory Disorders: No Hx Cardiac Disorders: No Hx Psychiatric Problems: Yes (ANXIETY AND DEPRESSION) Hx Miscellaneous Medical Probl: Yes (l. breast mass, anxiety depression ) Hx Alcohol Use: No Hx Substance Use: No Hx Tobacco Use: No FmHx Family History: No diabetes, No coronary disease, No other Physical Exam Vitals Vital Signs Date Temp Pulse Resp B/P (MAP) Pulse Ox O2 O2 Flow FiO2 Time Delivery Rate 01/22/19 98.2 69 18 111/56 100 15:15 (74) Physical Exam Const: No acute distress Head: Atraumatic Eyes: Normal Conjunctiva ENT: Normal External Ears, Nose and Mouth. Neck: Full range of motion. No meningismus. Resp: Clear to auscultation bilaterally Cardio: Regular rate and rhythm, no murmurs Abd: Tenderness to palpation without guarding rigidity in the upper left quadrant. No McBurney's. Patient ambulatory without difficulty. Able to jump up and down. Skin: No petechiae or rashes Back: No midline or flank tenderness Ext: No cyanosis, or edema Neur: Awake and alert Psych: Normal Mood and Affect Result Diagram: 01/22/19 1639 01/22/19 1639 Results 24 hrs Laboratory Tests Test 01/22/19 16:28 01/22/19 16:39 POC Beta HCG, Qualitative NEGATIVE White Blood Count 11.7 10^3/ul Red Blood Count 4.52 10^6/ul Hemoglobin 13.7 g/dl Hematocrit 40.0 % Mean Corpuscular Volume 88.5 fl Mean Corpuscular Hemoglobin 30.3 pg Mean Corpuscular Hemoglobin Concent 34.3 g/dl Red Cell Distribution Width 11.9 % Platelet Count 337 10^3/UL Mean Platelet Volume 10.0 fl Immature Granulocytes % 0.300 % Neutrophils % 74.0 % Lymphocytes % 18.5 % Monocytes % 5.9 % Eosinophils % 0.9 % Basophils % 0.4 % Nucleated Red Blood Cells % 0.0 /100WBC Immature Granulocytes # 0.040 10^3/ul Neutrophils # 8.6 10^3/ul Lymphocytes # 2.2 10^3/ul Monocytes # 0.7 10^3/ul Eosinophils # 0.1 10^3/ul Basophils # 0.1 10^3/ul Nucleated Red Blood Cells # 0.0 10^3/ul Sodium Level 141 mmol/L Potassium Level 3.9 mmol/L Chloride Level 105 mmol/L Carbon Dioxide Level 28 mmol/L Anion Gap 8 Blood Urea Nitrogen 11 mg/dl Creatinine 0.57 mg/dl Est Glomerular Filtrat Rate mL/min > 60 mL/min Glucose Level 102 mg/dl Calcium Level 10.4 mg/dl Total Bilirubin 0.3 mg/dl Direct Bilirubin 0.00 mg/dl Indirect Bilirubin 0.3 mg/dl Aspartate Amino Transf (AST/SGOT) 25 IU/L Alanine Aminotransferase (ALT/SGPT) 32 IU/L Alkaline Phosphatase 66 IU/L Total Protein 8.1 g/dl Albumin 4.8 g/dl Globulin 3.30 g/dl Albumin/Globulin Ratio 1.45 Beta HCG, Quantitative 8.3 mIU/ml Current Medications Medications Dose Sig/Tony Start Time Status Last (Trade) Ordered Route PRN Stop Time Admin Dose Reason Admin 1,000 mg ONCE STAT 01/22/19 DC 01/22/19 Acetaminophen PO 16:25 16:33 (Tylenol 01/22/19 16:29 Tab) Procedures/MDM DIAGNOSTIC IMAGING REPORT Patient: GARRICK HERNANDEZ : 1990 Age: 28 Sex: F MR #: [id number] DOS: 01/22/19 1625 Ordering MD: CECILIO GARNER Location: [facility] Room/Bed: PROCEDURE: US Pelvis. CLINICAL INDICATION: vaginal bleeding TECHNIQUE: Multiple sonographic images of the pelvis were obtained utilizing a transabdominal and endovaginal technique. The images were reviewed on a PACS workstation. COMPARISON: None. FINDINGS: The uterus is normal in size and demonstrates a normal appearance of the myometrium. The uterus measures 7.6 x 4.4 x 3.9 cm in size. The endometrial stripe is homogeneous in appearance and has the thickness of 7 mm. There are small Nabothian cysts in the cervix. No intrauterine gestation is noted. The ovaries are normal in size and echogenicity. Normal Doppler flow is identified in both ovaries. The right ovary measures 2.6 x 1.2-1.5 cm. The left ovary measures 3.0 x 1.1 x 2.0 cm. There is a 1.4 cm hemorrhagic cyst in the left ovary No free fluid is present within the pelvis.. RPTAT: AA IMPRESSION: No intrauterine gestation visualized. Small hemorrhagic cyst in the left ovary. Differential diagnosis includes early , missed or ectopic . Follow-up ultrasound and HCG levels is recommended. .Brooks Kovacs MD, MD Date Time Electronically viewed and signed by .Brooks Kovacs MD, MD on 01/22/2019 17:09 .S/ CC: CECILIO GARNER [id number] ER Course: CBC, UA, beta quant HCG, type and RH, vaginal US/abdominal US ordered. MDM: Ultrasound showed no intrauterine . I discussed the case of the laborist on-call Dr. Kuhn and he stated that since the beta-hCG was less than 10 it was not even considered a therefore there is no possibility of ectopic. I discussed this with the patient and told her that she needed a follow-up with her OB. Patient stated that she had an OB appointment tomorrow and she would follow-up. Patient also stated that she no longer had any abdominal pain. I reevaluated the patient at discharge and there was no tenderness to palpation of the abdomen.. I have low suspicion for ectopic based on results of US, hemodynamic stability, physical exam and patient history. I have low suspicion for septic , pyelonephritis, placenta abrupta, appendicitis, cholecystitis, bowel obstruction, ovarian torsion, symptomatic anema, PID, surgical abdomen, or other life threatening conditions based on patient history, physical exam, and lab/imaging results. Patient discharged with strict ER precautions. Patient advised to follow up with PMD and training mgr. All questions answered at discharge. Departure Diagnosis: Primary Impression: Vaginal bleeding in patient at less than 20 weeks gestation Additional Impression: Abdominal pain affecting Condition: Stable CECILIO GARNER Jan 22, 2019 17:29
[2019-01-22] MEDS ORDERED: ACET500C5 PO (18:29)
== END 2019-01-22 18:58 | disposition home or self-care (01) ==
LOC: FTE 15:03
DX: N93.9 Abnormal uterine and vaginal bleeding, unspecified (principal); R10.9 Unspecified abdominal pain; R10.2 Pelvic and perineal pain
CPT/HCPCS: 36415; 76801; 76817; 80053; 81001; 81025; 84702; 85025; 86900; 86901; Z7502; Z7610

== ENCOUNTER 2019-03-20 22:33 | Emergency (ER) | payer OTHER ==
[~2019-03-20] VITALS: Ht 165.1 cm; Wt 62.3 kg
[2019-03-20 22:38] VITALS: BP 110/56; PULSE 77; RESP 18; Ht 165.1 cm; Wt 62.3 kg
--- NOTE | 2019-03-21 02:19 | ERD ---
ER Documentation Chief Complaint Chief Complaint L SIDE AP X'S 1 DAY; 6 WEEKS PG HPI 28-year-old female G5, P3 currently 6 weeks by LMP who presents with complaint of left-sided pelvic pain as well as vaginal spotting. Patient states he has been having left-sided pelvic pain radiating to left flank along with vaginal spotting with patches of tiny small clots. Patient was seen by her TELEGRAPH DISPATCHER earlier today had an ultrasound which she states TELEGRAPH DISPATCHER was concerned for fetus not growing at expected rate. She does not reports of ultrasound or lab testing. Patient told by TELEGRAPH DISPATCHER to proceed to ED if she has worsening of her pelvic pain. States she had a miscarriage earlier this year on January 22. She otherwise denies fevers, chills, dizziness, lightheadedness, chest pain, shortness of breath, dyspnea, nausea, vomiting, diarrhea. ROS All systems reviewed and are negative except as per history of present illness. Medications Home Meds Active Scripts Ibuprofen* (Motrin*) 400 Mg Tab, 400 MG PO Q6, #15 TAB Prov:AAMIR CARBAJAL MD 03/27/19 Acetaminophen with Codeine (Acetaminophen-Cod #3 Tablet) 1 Each Tablet, 1 TAB PO Q6H PRN for PAIN, #10 TAB Prov:AAMIR CARBAJAL MD 03/27/19 Cephalexin* (Keflex*) 500 Mg Capsule, 500 MG PO BID for 7 Days, CAP Prov:ROSE DYER PA-C 03/21/19 Acetaminophen* (Tylophen*) 500 Mg Capsule, 2 CAP PO Q8H PRN for PAIN AND OR ELEVATED TEMP, #20 CAP Prov:CECILIO GARNER 01/22/19 Hydroxyzine Hcl* (Hydroxyzine Hcl*) 50 Mg Tablet, 50 MG PO Q6H PRN for ANXIETY, #30 TAB Prov:PASILAAVI JOYNERAR F 01/11/19 Ibuprofen* (Motrin*) 600 Mg Tab, 600 MG PO Q6H PRN for PAIN AND OR ELEVATED TEMP, #30 TAB Prov:PASILABANAVIAR F 01/11/19 Baclofen* (Baclofen*) 10 Mg Tablet, 10 MG PO TID for 5 Days, #15 TAB Prov:JOSE GUADALUPE SUAREZ MD 08/29/18 Ibuprofen* (Motrin*) 400 Mg Tab, 400 MG PO Q8 for 5 Days, #15 TAB Prov:JOSE GUADALUPE SUAREZ MD 08/29/18 Ibuprofen* (Motrin*) 600 Mg Tab, 600 MG PO Q6H PRN for PAIN AND OR ELEVATED TEMP, #30 TAB Prov:JOSE DE JESUSLAURA Chaim BLANCAS 08/08/18 Tramadol HCl (Tramadol HCl) 50 Mg Tablet, 50 MG PO Q6 PRN for SEVERE PAIN LEVEL 7-10, #20 TAB Prov:EVANGELINA FELIX NP 06/15/18 Ibuprofen* (Motrin*) 600 Mg Tab, 600 MG PO Q6H PRN for PAIN AND OR ELEVATED T EMP, #30 TAB Prov:EVANGELINA FELIX GROCERY BAGGER 06/15/18 Cephalexin* (Keflex*) 500 Mg Capsule, 500 MG PO QID for 5 Days, CAP Prov:EVANGELINA FELIX NP 06/15/18 Diphenhydramine Hcl* (Benadryl*) 25 Mg Cap, 25 MG PO Q6, #30 CAP Prov:YFN ALTAMIRANO PA-C 05/12/18 Diphenhydramine Hcl/Zinc Acet (Benadryl Itch Stopping Crm) 28.3 Gm Cream.gm., 1 APPLIC TP TID, #1 TUB Prov:YFN ALTAMIRANO PA-C 05/12/18 Mupirocin* (Bactroban*) 2% -22 Gram Oint...g., 1 APPLIC TOP BID for 7 Days, EA Prov:YFN ALTAMIRANO PA-C 05/12/18 Ibuprofen* (Motrin*) 600 Mg Tab, 600 MG PO Q6, #30 TAB Prov:YFN ALTAMIRANO PA-C 05/12/18 Neomycin/Polymyxin/Hydrocort* (Cortisporin* Otic) 10 Ml Susp, 4 DROP LEFT EAR QID for 7 Days, EA Prov:JOSE GUADALUPE SUAREZ MD 01/10/18 Lorazepam* (Ativan*) 0.5 Mg Tablet, 0.5 MG PO Q8H PRN for ANXIETY, #10 TAB Prov:JOSE GUADALUPE SUAREZ MD 01/10/18 Meclizine Hcl* (Antivert*) 12.5 Mg Tab, 12.5 MG PO Q8 PRN for DIZZINESS for 5 Days, #15 TAB Prov:JOSE GUADALUPE SUAREZ MD 01/10/18 Oseltamivir Phosphate* (Tamiflu*) 75 Mg Capsule, 75 MG PO BID for 5 Days, CAP Prov:AAMIR CARBAJAL MD 11/21/17 Dextromethorphan Hb-Promethazine Hcl* (Promethazine DM* Syrup) 473 Ml Syrup, 5 ML PO Q6 PRN for COUGH for 5 Days, ML Prov:AAMIR CARBAJAL MD 11/21/17 Ibuprofen* (Motrin*) 400 Mg Tab, 400 MG PO Q6, #15 TAB Prov:AAMIR CARBAJAL MD 11/21/17 Alprazolam* (Xanax*) 0.25 Mg Tablet, 0.25 MG PO Q8H PRN for ANXIETY, #10 TAB Prov:EVANGELINA FELIX NP 03/08/17 Hydrocodone/Acetaminophen ([place] 5-325 Tablet) 1 Each Tablet, 1.5 TAB PO Q6H PRN for PAIN, #20 TAB Prov:SILVANA JURADO 12/30/16 Naproxen* (Naprosyn*) 500 Mg Tablet, 500 MG PO BID PRN for PAIN AND/OR INFLAMMATION, #30 TAB Prov:OLIMPIA ALBERTS PA-C 12/02/16 Acetaminophen* (Tylophen*) 500 Mg Capsule, 1 CAP PO Q6H PRN for PAIN AND OR ELEVATED TEMP, #30 CAP Prov:OLIMPIA ALBERTS PA-C 12/02/16 Tramadol HCl (Tramadol HCl) 50 Mg Tablet, 50 MG PO Q4 PRN for PAIN, #20 TAB Prov:OLIMPIA ALBERTS PA-C 12/02/16 Naproxen* (Naprosyn*) 500 Mg Tablet, 500 MG PO BID PRN for PAIN AND/OR INFLAMMATION, #30 TAB Prov:SARAH HIGGINS 10/11/16 Ibuprofen* (Motrin*) 600 Mg Tab, 600 MG PO Q6, #30 TAB Prov:OLIMPIA ALBERTS PA-C 05/25/16 Albuterol Sulfate* (Proair HFA*) 8.5 Gm Hfa.aer.ad, 2 PUFF INH Q4, #1 INHALER Prov:OLIMPIA ALBERTS PA-C 05/25/16 Azithromycin* (Zithromax*) 250 Mg Tablet, 250 MG PO .ZPACK DIRECTED, #6 TAB TAKE 500 MG (2 TABS) THE FIRST DAY THEN 250 MG (1 TAB) DAYS 2-5 Prov:OLIMPIA ALBERTS PA-C 05/25/16 Loperamide Hcl* (Imodium*) 2 Mg Capsule, 2 MG PO .AFTER EA LOOSE BM PRN for DIARRHEA, #8 TAB Prov:OLIMPIA ALBERTS PA-C 16 Ondansetron Hcl* (Zofran*) 4 Mg Tablet, 4 MG PO Q6H for NAUSEA AND/OR VOMITING, #30 TAB Prov:OLIMPIA ALBERTS PA-C 05/25/16 Allergies Allergies: Coded Allergies: No Known Allergy (Unverified , 03/03/13) PMhx/Soc History of Surgery: Yes (left breast lump removal) Anesthesia Reaction: No Hx Neurological Disorder: No Hx Respiratory Disorders: No Hx Cardiac Disorders: No Hx Psychiatric Problems: Yes (ANXIETY AND DEPRESSION) Hx Miscellaneous Medical Probl: Yes (l. breast mass, anxiety depression ) Hx Alcohol Use: No Hx Substance Use: No Hx Tobacco Use: No Smoking Status: Never smoker FmHx Family History: No diabetes, No coronary disease, No other Physical Exam Vitals Physical Exam Const: No acute distress Head: Atraumatic Eyes: Normal Conjunctiva ENT: Normal External Ears, Nose and Mouth. Neck: Full range of motion. No meningismus. Resp: Clear to auscultation bilaterally Cardio: Regular rate and rhythm, no murmurs Abd: Soft, tender to left pelvic region. Left flank tenderness, non distended. Normal bowel sounds Skin: No petechiae or rashes Back: No midline or flank tenderness Ext: No cyanosis, or edema Neur: Awake and alert Psych: Normal Mood and Affect Results 24 hrs Laboratory Tests Test 03/21/19 02:33 White Blood Count 10.5 10^3/ul Red Blood Count 4.10 10^6/ul Hemoglobin 12.6 g/dl Hematocrit 36.7 % Mean Corpuscular Volume 89.5 fl Mean Corpuscular Hemoglobin 30.7 pg Mean Corpuscular Hemoglobin Concent 34.3 g/dl Red Cell Distribution Width 11.7 % Platelet Count 294 10^3/UL Mean Platelet Volume 10.2 fl Immature Granulocytes % 0.300 % Neutrophils % 67.0 % Lymphocytes % 25.2 % Monocytes % 5.9 % Eosinophils % 1.2 % Basophils % 0.4 % Nucleated Red Blood Cells % 0.0 /100WBC Immature Granulocytes # 0.030 10^3/ul Neutrophils # 7.0 10^3/ul Lymphocytes # 2.6 10^3/ul Monocytes # 0.6 10^3/ul Eosinophils # 0.1 10^3/ul Basophils # 0.0 10^3/ul Nucleated Red Blood Cells # 0.0 10^3/ul Urine Color YELLOW Urine Clarity SLIGHTLY CLOUDY Urine pH 6.0 Urine Specific [place] 1.013 Urine Ketones TRACE mg/dL Urine Nitrite NEGATIVE mg/dL Urine Bilirubin NEGATIVE mg/dL Urine Urobilinogen NEGATIVE mg/dL Urine Leukocyte Esterase 2+ Ganesh/ul Urine Microscopic RBC 8 /HPF Urine Microscopic WBC 42 /HPF Urine Hemoglobin 3+ mg/dL Urine Glucose NEGATIVE mg/dL Urine Total Protein NEGATIVE mg/dl Beta HCG, Quantitative 36829.0 mIU/ml Procedures/MDM This patient in the first trimester of presented to the emergency department with complaints of vaginal bleeding and abdominal pain. VSS. A pelvic ultrasound 1. Single early intrauterine gestation of approximately 6 weeks 2 days without evidence for a pole. Clinical correlation and follow-up ultrasound 1-2 weeks is suggested. 2. The left ovary was not visualized. Clinical Impression: Threatened Miscarriage vs vaginal spotting and early supportive measures and return indications discussed with patient. See DCI. DCI: Bed rest. Pelvic Rest. Drink plenty of fluids. Follow up with your TELEGRAPH DISPATCHER in 1-2 days, Return here or with your OB in 48 hours for repeat BHCG level, Bring a copy of your results from today's visit Return to the ER for increased bleeding (more than 1 pad an hour for consecutive hours), increased abdominal cramping, fever, passage of products of conception, lightheadedness or any other concerns DISPOSITION PLAN: We discussed follow up with the patient's primary care doctor within 24 to 48 hours. Patient counseled regarding my diagnostic impression and care plan. Prior to discharge all questions answered. Pt agrees with treatment plan and understands strict return precautions. Precautionary instructions provided including instructions to return to the ER if not improving or for any worsening or changing symptoms or concerns. Disclaimer: Inadvertent spelling and grammatical errors are likely due to EHR/dictation software use and do not reflect on the overall quality of patient care. Also, please note that the electronic time recorded on this note does not necessarily reflect the actual time of the patient encounter. Departure Diagnosis: Primary Impression: Vaginal bleeding Condition: Stable Patient Instructions: Vaginal Bleed in Additional Instructions: Call your primary care doctor TOMORROW for an appointment during the next 2-3 days.See the doctor sooner or return here if your condition worsens before your appointment time. ROSE DYER PA-C Mar 21, 2019 02:19
[2019-03-21] MEDS ORDERED: CEPH-443 PO (04:18)
== END 2019-03-21 04:30 | disposition home or self-care (01) ==
LOC: FTE 22:33
DX: O20.9 Hemorrhage in early pregnancy, unspecified (principal); R10.2 Pelvic and perineal pain; Z3A.01 Less than 8 weeks gestation of pregnancy
CPT/HCPCS: 36415; 76801; 76817; 81001; 84702; 85025; 86900; 86901; 87086

== ENCOUNTER 2019-03-23 11:48 | Emergency (ER) | payer OTHER ==
[~2019-03-23] VITALS: Ht 165.1 cm; Wt 62.2 kg
[2019-03-23 11:55] VITALS: BP 103/53; PULSE 66; RESP 16; Ht 165.1 cm; Wt 62.2 kg
--- NOTE | 2019-03-23 12:52 | ERD ---
ER Documentation Chief Complaint Chief Complaint SEEN HERE DEREK FOR VAG BLEED, 6WKS PREG, STILL BLEEDING/CRAMPING HPI Is a 28-year-old female who was seen here 3 days ago for vaginal bleeding during . She states is about 6 weeks and she is G5, P3 with 1 miscarriage. She continues to have intermittent cramping and light vaginal bleeding. She states she passed a small clot this morning but since then it has just been dark stains when she wipes. No fever. No dysuria or frequency. No vomiting. ROS All systems reviewed and are negative except as per history of present illness. Medications Home Meds Active Scripts Cephalexin* (Keflex*) 500 Mg Capsule, 500 MG PO BID for 7 Days, CAP Prov:ROSE DYER PA-C 03/21/19 Acetaminophen* (Tylophen*) 500 Mg Capsule, 2 CAP PO Q8H PRN for PAIN AND OR ELEVATED TEMP, #20 CAP Prov:CECILIO GARNER 01/22/19 Hydroxyzine Hcl* (Hydroxyzine Hcl*) 50 Mg Tablet, 50 MG PO Q6H PRN for ANXIETY, #30 TAB Prov:SILVANA JURADO 01/11/19 Ibuprofen* (Motrin*) 600 Mg Tab, 600 MG PO Q6H PRN for PAIN AND OR ELEVATED TEMP, #30 TAB Prov:SILVANA JURADO 01/11/19 Baclofen* (Baclofen*) 10 Mg Tablet, 10 MG PO TID for 5 Days, #15 TAB Prov:JOSE GUADALUPE SUAREZ MD 08/29/18 Ibuprofen* (Motrin*) 400 Mg Tab, 400 MG PO Q8 for 5 Days, #15 TAB Prov:JOSE GUADALUPE SUAREZ MD 08/29/18 Ibuprofen* (Motrin*) 600 Mg Tab, 600 MG PO Q6H PRN for PAIN AND OR ELEVATED TEMP, #30 TAB Prov:LAURA DELA CRUZ NP 08/08/18 Tramadol HCl (Tramadol HCl) 50 Mg Tablet, 50 MG PO Q6 PRN for SEVERE PAIN LEVEL 7-10, #20 TAB Prov:EVANGELINA FELIX NP 06/15/18 Ibuprofen* (Motrin*) 600 Mg Tab, 600 MG PO Q6H PRN for PAIN AND OR ELEVATED TEMP, #30 TAB Prov:EVANGELINA FELIX DRESSING ROOM PORTER 06/15/18 Cephalexin* (Keflex*) 500 Mg Capsule, 500 MG PO QID for 5 Days, CAP Prov:ENEELIELEVANGELINA HERZOG DRESSING ROOM PORTER 06/15/18 Diphenhydramine Hcl* (Benadryl*) 25 Mg Cap, 25 MG PO Q6, #30 CAP Prov:PIERRE ALTAMIRANOMOUSTAPHA PADRON-Morenita 05/12/18 Diphenhydramine Hcl/Zinc Acet (Benadryl Itch Stopping Crm) 28.3 Gm Cream.gm., 1 APPLIC TP TID, #1 TUB Prov:ADARSHFYN PADRON-Moren[place] 05/12/18 Mupirocin* (Bactroban*) 2% -22 Gram Oint...g., 1 APPLIC TOP BID for 7 Days, EA Prov:ADARSHYFN THOMAS 05/12/18 Ibuprofen* (Motrin*) 600 Mg Tab, 600 MG PO Q6, #30 TAB Prov:ADARSHYFN THOMAS 05/12/18 Neomycin/Polymyxin/Hydrocort* (Cortisporin* Otic) 10 Ml Susp, 4 DROP LEFT EAR QID for 7 Days, EA Prov:JOSE GUADALUPE SUAREZ MD 01/10/18 Lorazepam* (Ativan*) 0.5 Mg Tablet, 0.5 MG PO Q8H PRN for ANXIETY, #10 TAB Prov:JOSE GUADALUPE SUAREZ MD 01/10/18 Meclizine Hcl* (Antivert*) 12.5 Mg Tab, 12.5 MG PO Q8 PRN for DIZZINESS for 5 Days, #15 TAB Prov:JOSE GUADALUPE SUAREZ MD 01/10/18 Oseltamivir Phosphate* (Tamiflu*) 75 Mg Capsule, 75 MG PO BID for 5 Days, CAP Prov:AAMIR CARBAJAL MD 11/21/17 Dextromethorphan Hb-Promethazine Hcl* (Promethazine DM* Syrup) 473 Ml Syrup, 5 ML PO Q6 PRN for COUGH for 5 Days, ML Prov:AAMIR CARBAJAL MD 11/21/17 Ibuprofen* (Motrin*) 400 Mg Tab, 400 MG PO Q6, #15 TAB Prov:AAMIR CARBAJAL MD 11/21/17 Alprazolam* (Xanax*) 0.25 Mg Tablet, 0.25 MG PO Q8H PRN for ANXIETY, #10 TAB Prov:EVANGELINA FELIX NP 03/08/17 Hydrocodone/Acetaminophen ([place] 5-325 Tablet) 1 Each Tablet, 1.5 TAB PO Q6H PRN for PAIN, #20 TAB Prov:SILVANA JURADO 12/30/16 Naproxen* (Naprosyn*) 500 Mg Tablet, 500 MG PO BID PRN for PAIN AND/OR INFLAMMATION, #30 TAB Prov:OLIMPIA ALBERTS PA-C 12/02/16 Acetaminophen* (Tylophen*) 500 Mg Capsule, 1 CAP PO Q6H PRN for PAIN AND OR ELEVATED TEMP, #30 CAP Prov:OLIMPIA ALBERTS PA-C 12/02/16 Tramadol HCl (Tramadol HCl) 50 Mg Tablet, 50 MG PO Q4 PRN for PAIN, #20 TAB Prov:OLIMPIA ALBERTS PA-C 12/02/16 Naproxen* (Naprosyn*) 500 Mg Tablet, 500 MG PO BID PRN for PAIN AND/OR INFLAMMATION, #30 TAB Prov:SARAH HIGGINS 10/11/16 Ibuprofen* (Motrin*) 600 Mg Tab, 600 MG PO Q6, #30 TAB Prov:OLIMPIA ALBERTS PA-C 05/25/16 Albuterol Sulfate* (Proair HFA*) 8.5 Gm Hfa.aer.ad, 2 PUFF INH Q4, #1 INHALER Prov:OLIMPIA ALBERTS PA-C 05/25/16 Azithromycin* (Zithromax*) 250 Mg Tablet, 250 MG PO .ALEX DIRECTED, #6 TAB TAKE 500 MG (2 TABS) THE FIRST DAY THEN 250 MG (1 TAB) DAYS 2-5 Prov:OLIMPIA ALBERTS PA-C 05/25/16 Loperamide Hcl* (Imodium*) 2 Mg Capsule, 2 MG PO .AFTER EA LOOSE BM PRN for DIARRHEA, #8 TAB Prov:OLIMPIA ALBERTS PA-C 05/25/16 Ondansetron Hcl* (Zofran*) 4 Mg Tablet, 4 MG PO Q6H for NAUSEA AND/OR VOMITING, #30 TAB Prov:OLIMPIA ALBERTS PA-C 05/25/16 Allergies Allergies: Coded Allergies: No Known Allergy (Unverified , 03/03/13) PMhx/Soc History of Surgery: Yes (left breast lump removal) Anesthesia Reaction: No Hx Neurological Disorder: No Hx Respiratory Disorders: No Hx Cardiac Disorders: No Hx Psychiatric Problems: Yes (ANXIETY AND DEPRESSION) Hx Miscellaneous Medical Probl: Yes (l. breast mass, anxiety depression ) Hx Alcohol Use: No Hx Substance Use: No Hx Tobacco Use: No Smoking Status: Never smoker FmHx Family History: No diabetes Physical Exam Vitals Vital Signs Date Temp Pulse Resp B/P (MAP) Pulse Ox O2 O2 Flow FiO2 Time Delivery Rate 03/23/19 98.2 66 16 103/53 100 11:55 (70) Physical Exam INITIAL VITAL SIGNS: Reviewed by me GENERAL: Awake, alert and oriented x 4, well appearing, nontoxic, speaking in full sentences. No acute distress RESPIRATORY: Clear to auscultation bilaterally. Symmetric chest wall rise. No wheezing or rales. No accessory muscle use. CV: Regular rate and rhythm. No murmurs, rubs, or gallops. ABDOMEN: Soft, non-distended. Nontender. Negative [place]. Negative McBurneys point tenderness. No CVA tenderness bilaterally. No guarding. No rebound. Results 24 hrs Laboratory Tests Test 03/23/19 13:10 Urine Color STRAW Urine Clarity SLIGHTLY CLOUDY Urine pH 6.0 Urine Specific [place] 1.002 Urine Ketones NEGATIVE mg/dL Urine Nitrite NEGATIVE mg/dL Urine Bilirubin NEGATIVE mg/dL Urine Urobilinogen NEGATIVE mg/dL Urine Leukocyte Esterase TRACE Ganesh/ul Urine Microscopic RBC 1 /HPF Urine Microscopic WBC 3 /HPF Urine Bacteria FEW /HPF Urine Hemoglobin 3+ mg/dL Urine Glucose NEGATIVE mg/dL Urine Total Protein NEGATIVE mg/dl Beta HCG, Quantitative 63091.0 mIU/ml Procedures/MDM The differential diagnosis includes but is not limited to threatened/i ncomplete/inevitable/complete , ectopic , non- related bleeding, and others. Repeat beta-hCG and ultrasound ordered. Beta-hCG on Tuesday was 26,568 today it is decreased to 25,993. Patient's ultrasound is essentially unchanged from her previous one. She plans to follow-up with [facility] on Tuesday. She was given copy of lab and ultrasound report. Patient counseled regarding my diagnostic impression and care plan. Prior to discharge all questions answered. Pt agrees with treatment plan and understands strict return precautions. Pt is instructed to follow up with primary care provider within 24- 48 hours. Precautionary instructions provided including instructions to return to the ER if not improving or for any worsening or changing symptoms or concerns. Departure Diagnosis: Primary Impression: Vaginal bleeding in patient at less than 20 weeks gestation Condition: Stable MEENAKSHI GANNON PA-C Mar 23, 2019 12:52
== END 2019-03-23 14:56 | disposition home or self-care (01) ==
LOC: FTE 11:48
DX: O20.9 Hemorrhage in early pregnancy, unspecified (principal); Z3A.01 Less than 8 weeks gestation of pregnancy
CPT/HCPCS: 36415; 76801; 76817; 81001; 84702; Z7502

== ENCOUNTER 2019-03-24 04:04 | Emergency (ER) | payer OTHER ==
[~2019-03-24] VITALS: Ht 165.1 cm; Wt 61.1 kg
[2019-03-24 04:08] VITALS: Ht 165.1 cm; Wt 61.1 kg
[2019-03-24] MEDS ORDERED: ACETAMINOPHEN 500 MG TAB PO STA (04:48)
--- NOTE | 2019-03-24 05:10 | ERD ---
ER Documentation Chief Complaint Chief Complaint here yesterday for vag bleed; dc back for more bleed; 6 weeks preg HPI Patient is a 28-year-old female, G5, P3, A1 approximately 6 weeks , who presents the ER for concerns of vaginal bleeding and blood clot passage x4 hours. Patient was seen here yesterday and told that she likely had a miscarriage versus beta-hCG was downtrending. Patient states she woke up in the middle the night and started to have pelvic cramping and blood clot passage. Patient reports using 3 pads thus far. Patient denies any lightheadedness or dizziness. Patient denies any chest pain or shortness of breath. ROS All systems reviewed and are negative except as per history of present illness. Medications Home Meds Active Scripts Cephalexin* (Keflex*) 500 Mg Capsule, 500 MG PO BID for 7 Days, CAP Prov:ROSE DYER PA-C 03/21/19 Acetaminophen* (Tylophen*) 500 Mg Capsule, 2 CAP PO Q8H PRN for PAIN AND OR ELEVATED TEMP, #20 CAP Prov:CECILIO GARNER 01/22/19 Hydroxyzine Hcl* (Hydroxyzine Hcl*) 50 Mg Tablet, 50 MG PO Q6H PRN for ANXIETY, #30 TAB Prov:SILVANA JURADO F 01/11/19 Ibuprofen* (Motrin*) 600 Mg Tab, 600 MG PO Q6H PRN for PAIN AND OR ELEVATED TEMP, #30 TAB Prov:PASILAAVI JOYNERAR F 01/11/19 Baclofen* (Baclofen*) 10 Mg Tablet, 10 MG PO TID for 5 Days, #15 TAB Prov:JOSE GUADALUPE SUAREZ MD 08/29/18 Ibuprofen* (Motrin*) 400 Mg Tab, 400 MG PO Q8 for 5 Days, #15 TAB Prov:JOSE GUADALUPE SUAREZ MD 08/29/18 Ibuprofen* (Motrin*) 600 Mg Tab, 600 MG PO Q6H PRN for PAIN AND OR ELEVATED TEMP, #30 TAB Prov:LAURA DELA CRUZ NP 08/08/18 Tramadol HCl (Tramadol HCl) 50 Mg Tablet, 50 MG PO Q6 PRN for SEVERE PAIN LEVEL 7-10, #20 TAB Prov:EVANGELINA FELIX NP 06/15/18 Ibuprofen* (Motrin*) 600 Mg Tab, 600 MG PO Q6H PRN for PAIN AND OR ELEVATED TEMP, #30 TAB Prov:EVANGELINA FELIX FLIGHT CONTROL SPECIALIST 06/15/18 Cephalexin* (Keflex*) 500 Mg Capsule, 500 MG PO QID for 5 Days, CAP Prov:EVANGELINA FELIX NP 06/15/18 Diphenhydramine Hcl* (Benadryl*) 25 Mg Cap, 25 MG PO Q6, #30 CAP Prov:YFN ALTAMIRANO PA-C 05/12/18 Diphenhydramine Hcl/Zinc Acet (Benadryl Itch Stopping Crm) 28.3 Gm Cream.gm., 1 APPLIC TP TID, #1 TUB Prov:YFN ALTAMIRANO PA-C 05/12/18 Mupirocin* (Bactroban*) 2% -22 Gram Oint...g., 1 APPLIC TOP BID for 7 Days, EA Prov:YFN ALTAMIRANO PA-C 05/12/18 Ibuprofen* (Motrin*) 600 Mg Tab, 600 MG PO Q6, #30 TAB Prov:YFN ALTAMIRANO PA-C 05/12/18 Neomycin/Polymyxin/Hydrocort* (Cortisporin* Otic) 10 Ml Susp, 4 DROP LEFT EAR QID for 7 Days, EA Prov:JOSE GUADALUPE SUAREZ MD 01/10/18 Lorazepam* (Ativan*) 0.5 Mg Tablet, 0.5 MG PO Q8H PRN for ANXIETY, #10 TAB Prov:JOSE GUADALUPE SUAREZ MD 01/10/18 Meclizine Hcl* (Antivert*) 12.5 Mg Tab, 12.5 MG PO Q8 PRN for DIZZINESS for 5 Days, #15 TAB Prov:JOSE GUADALUPE SUAREZ MD 01/10/18 Oseltamivir Phosphate* (Tamiflu*) 75 Mg Capsule, 75 MG PO BID for 5 Days, CAP Prov:AAMIR CARBAJAL MD 11/21/17 Dextromethorphan Hb-Promethazine Hcl* (Promethazine DM* Syrup) 473 Ml Syrup, 5 ML PO Q6 PRN for COUGH for 5 Days, ML Prov:AAMIR CARBAJAL MD 11/21/17 Ibuprofen* (Motrin*) 400 Mg Tab, 400 MG PO Q6, #15 TAB Prov:AAMIR CARBAJAL MD 11/21/17 Alprazolam* (Xanax*) 0.25 Mg Tablet, 0.25 MG PO Q8H PRN for ANXIETY, #10 TAB Prov:EVANGELINA FELIX NP 03/08/17 Hydrocodone/Acetaminophen ([place] 5-325 Tablet) 1 Each Tablet, 1.5 TAB PO Q6H PRN for PAIN, #20 TAB Prov:SILVANA JURADO 12/30/16 Naproxen* (Naprosyn*) 500 Mg Tablet, 500 MG PO BID PRN for PAIN AND/OR INFLAMMATION, #30 TAB Prov:OLIMPIA ALBERTS PA-C 12/02/16 Acetaminophen* (Tylophen*) 500 Mg Capsule, 1 CAP PO Q6H PRN for PAIN AND OR ELEVATED TEMP, #30 CAP Prov:OLIMPIA ALBERTS PA-C 12/02/16 Tramadol HCl (Tramadol HCl) 50 Mg Tablet, 50 MG PO Q4 PRN for PAIN, #20 TAB Prov:OLIMPIA ALBERTS PA-C 12/02/16 Naproxen* (Naprosyn*) 500 Mg Tablet, 500 MG PO BID PRN for PAIN AND/OR INFLAMMATION, #30 TAB Prov:SARAH HIGGINS 10/11/16 Ibuprofen* (Motrin*) 600 Mg Tab, 600 MG PO Q6, #30 TAB Prov:OLIMPIA ALBERTS PA-C 05/25/16 Albuterol Sulfate* (Proair HFA*) 8.5 Gm Hfa.aer.ad, 2 PUFF INH Q4, #1 INHALER Prov:OLIMPIA ALBERTS PA-C 05/25/16 Azithromycin* (Zithromax*) 250 Mg Tablet, 250 MG PO .EKLCK DIRECTED, #6 TAB TAKE 500 MG (2 TABS) THE FIRST DAY THEN 250 MG (1 TAB) DAYS 2-5 Prov:OLIMPIA ALBERTS PA-C 05/25/16 Loperamide Hcl* (Imodium*) 2 Mg Capsule, 2 MG PO .AFTER EA LOOSE BM PRN for DI ARRHEA, #8 TAB Prov:ARISTEOJESUSNancy De Oliveira PA-C 05/25/16 Ondansetron Hcl* (Zofran*) 4 Mg Tablet, 4 MG PO Q6H for NAUSEA AND/OR VOMITING, #30 TAB Prov:OLIMPIA ALBERTSLorena THOMAS 05/25/16 Allergies Allergies: Coded Allergies: No Known Allergy (Unverified , 03/03/13) PMhx/Soc History of Surgery: Yes (left breast lump removal) Anesthesia Reaction: No Hx Neurological Disorder: No Hx Respiratory Disorders: No Hx Cardiac Disorders: No Hx Psychiatric Problems: Yes (ANXIETY AND DEPRESSION) Hx Miscellaneous Medical Probl: Yes (l. breast mass, anxiety depression ) Hx Alcohol Use: No Hx Substance Use: No Hx Tobacco Use: No Smoking Status: Never smoker FmHx Family History: No diabetes Physical Exam Vitals Vital Signs Date Temp Pulse Resp B/P (MAP) Pulse Ox O2 O2 Flow FiO2 Time Delivery Rate 03/24/19 98.2 89 20 113/51 99 04:08 (71) Physical Exam GENERAL: Well-developed, well-nourished female. Appears in no acute distress. Speaking in full sentences. HEAD: Normocephalic, atraumatic. EYES: Pupils are equally reactive bilaterally. EOMs grossly intact. No conjunctival erythema. ENT: Moist mucous membranes. No uvula deviation. No kissing tonsils. NECK: Supple. No meningismus. Normal range of motion of the neck. LUNG: Clear to auscultation bilaterally. No rhonchi, wheezing, rales or coarse breath sounds. HEART: Regular rate and rhythm. No murmurs, rubs or gallops. ABDOMEN: Tender to palpation over the suprapubic region.. Positive bowel sounds in all four quadrants. No rebound tenderness, no guarding. (-) McBurney's point tenderness. No CVA tenderness. SLAB WORKER: TYLER Nugent present during this part of the exam. Single small blood clot noted within the vaginal vault. No active hemorrhaging at this time. EXTREMITIES: Equal pulses bilaterally. No peripheral clubbing, cyanosis or dayne a. No unilateral leg swelling. NEUROLOGIC: Alert and oriented. Moving all four extremities without any difficulty. Normal speech. Steady gait. SKIN: Normal color. Warm and dry. No rashes or lesions. Result Diagram: 03/24/19 0516 Results 24 hrs Laboratory Tests Test 03/24/19 05:16 White Blood Count 8.5 10^3/ul Red Blood Count 3.76 10^6/ul Hemoglobin 11.6 g/dl Hematocrit 33.3 % Mean Corpuscular Volume 88.6 fl Mean Corpuscular Hemoglobin 30.9 pg Mean Corpuscular Hemoglobin Concent 34.8 g/dl Red Cell Distribution Width 11.6 % Platelet Count 280 10^3/UL Mean Platelet Volume 10.1 fl Immature Granulocytes % 0.400 % Neutrophils % 70.4 % Lymphocytes % 19.7 % Monocytes % 7.4 % Eosinophils % 1.5 % Basophils % 0.6 % Nucleated Red Blood Cells % 0.0 /100WBC Immature Granulocytes # 0.030 10^3/ul Neutrophils # 6.0 10^3/ul Lymphocytes # 1.7 10^3/ul Monocytes # 0.6 10^3/ul Eosinophils # 0.1 10^3/ul Basophils # 0.1 10^3/ul Nucleated Red Blood Cells # 0.0 10^3/ul Urine Color RED Urine Clarity CLOUDY Urine pH 5.0 Urine Specific [place] 1.025 Urine Ketones NEGATIVE mg/dL Urine Nitrite NEGATIVE mg/dL Urine Bilirubin NEGATIVE mg/dL Urine Urobilinogen NEGATIVE mg/dL Urine Leukocyte Esterase NEGATIVE Ganesh/ul Urine Microscopic RBC > 182 /HPF Urine Microscopic WBC 0 /HPF Urine Squamous Epithelial Cells FEW /HPF Urine Mucus MODERATE /HPF Urine Hemoglobin 3+ mg/dL Urine Glucose NEGATIVE mg/dL Urine Total Protein 2+ mg/dl Current Medications Medications Dose Sig/Tony Start Time Status Last (Trade) Ordered Route PRN Stop Time Admin Dose Reason Admin 1,000 mg ONCE STAT 03/24/19 DC 03/24/19 Acetaminophen PO 04:48 05:27 (Tylenol 03/24/19 04:49 Tab) Procedures/MDM Blood work is pending at this time. Pelvic ultrasound pending at this time. Case will be signed out to oncoming provider Oliver Timmons PA-C. Departure Diagnosis: Primary Impression: Miscarriage Additional Impression: Vaginal bleeding in patient at less than 20 weeks ges... Condition: Fair Patient Instructions: Bleeding During Early Referrals: COMMUNITY CLINICS YOU HAVE RECEIVED A MEDICAL SCREENING EXAM AND THE RESULTS INDICATE THAT YOU DO NOT HAVE A CONDITION THAT REQUIRES URGENT TREATMENT IN THE EMERGENCY DEPARTMENT. FURTHER EVALUATION AND TREATMENT OF YOUR CONDITION CAN WAIT UNTIL YOU ARE SEEN IN YOUR DOCTORS OFFICE WITHIN THE NEXT 1-2 DAYS. IT IS YOUR RESPONSIBILITY TO MAKE AN APPOINTMENT FOR FOLOW-UP CARE. IF YOU HAVE A PRIMARY DOCTOR --you should call your primary doctor and schedule an appointment IF YOU DO NOT HAVE A PRIMARY DOCTOR YOU CAN CALL OUR PHYSICIAN REFERRAL HOTLINE AT IF YOU CAN NOT AFFORD TO SEE A PHYSICIAN YOU CAN CHOSE FROM THE FOLLOWING [facility] [address] [facility] [address] [facility] [address] [facility] [address] [facility] [address] [facility] [address] [facility] [facility] YOU HAVE RECEIVED A MEDICAL SCREENING EXAM AND THE RESULTS INDICATE THAT YOU DO NOT HAVE A CONDITION THAT REQUIRES URGENT TREATMENT IN THE EMERGENCY DEPARTMENT. FURTHER EVALUATION AND TREATMENT OF YOUR CONDITION CAN WAIT UNTIL YOU ARE SEEN IN YOUR DOCTORS OFFICE WITHIN THE NEXT 1-2 DAYS. IT IS YOUR RESPONSIBILITY TO MAKE AN APPOINTMENT FOR FOLOW-UP CARE. IF YOU HAVE A PRIMARY DOCTOR --you should call your primary doctor and schedule and appointment IF YOU DO NOT HAVE A PRIMARY DOCTOR YOU CAN CALL OUR PHYSICIAN REFERRAL HOTLINE AT . IF YOU CAN NOT AFFORD TO SEE A PHYSICIAN YOU CAN CHOSE FROM THE FOLLOWING [facility]: [facility] [address] [place] [address] [facility] [address] [place] [address] [facility] [address] [place] [address] Additional Instructions: Call your primary care doctor TOMORROW for an appointment during the next 1-2 days.See the doctor sooner or return here if your condition worsens before your appointment time. YFN ALTAMIRANO PA-C Mar 24, 2019 05:10
[2019-03-24 07:45] VITALS: BP 125/68; PULSE 78; RESP 18
--- NOTE | 2019-03-26 04:56 | EN ---
Date/Time of Note Date/Time of Note DATE: 03/26/19 TIME: 04:55 ER Progress Note 28-year-old female signed out to me by my colleague, Yfn Mark PA-C. I examined the patient myself and she had no tenderness palpation suprapubic region. She was in no distress. She was informed of her ultrasound results which were consistent with a spontaneous . 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 Her vital signs are stable and she is appropriate for discharge and further outpatient management. She is advised to return here immediately for any new or worsening or concerning symptoms. Patient understands and agrees with plan and return precautions. [place] [address] Radiology Main Line: [phone] DIAGNOSTIC IMAGING REPORT Patient: GARRICK HERNANDEZ : 1990 Age: 28 Sex: F MR #: [id number] DOS: 03/24/19 0448 Ordering MD: YFN MARK PA-C Location: [facility] Room/Bed: PROCEDURE: ULTRASOUND OBSTETRICAL CLINICAL INDICATION: 28-year-old female with vaginal bleeding. TECHNIQUE: Multiple sonographic images of the pelvis were obtained utilizing a transabdominal and endovaginal technique. The images were reviewed on a PACS workstation. COMPARISON: Ultrasound OB March 23, 2019; ultrasound OB March 21, 2019. FINDINGS: The uterus is visualized and measures 9.7 x 4.8 x 6.1 cm. There is no sonographic evidence for an intrauterine gestation. The endometrial echo complex is appears thickened and heterogeneous measuring up to 21 mm with increased vascularity. There is no evidence for free fluid. The right ovary has a normal echotexture and measures 3.7 x 1.7 x 2.0 cm. The left ovary has a normal echotexture and measures 3.4 x 1.7 x 1.6 cm. There is a left ovarian corpus luteum cyst measuring approximately 1.9 x 1.3 x 1.6 cm. There is flow identified within the ovaries bilaterally. No adnexal masses are noted. IMPRESSION: 1. No sonographic evidence for an intrauterine gestation with diffusely thickened heterogeneous hypervascular uterus. This presumably represents a spontaneous . Retained products of conception cannot be excluded. Clinical correlation is necessary. 2. Left ovarian corpus luteum cyst. .Woo Callaway MD, Date Time Electronically viewed and signed by .Woo Callaway MD, on 03/24/2019 06:57 .M/ CC: YFN MARK PA-C [id number] CECILIO SAXENA PA-C Mar 26, 2019 04:56
== END 2019-03-24 07:46 | disposition home or self-care (01) ==
LOC: FTE 04:04
DX: O03.9 Complete or unspecified spontaneous abortion without complication (principal); R10.2 Pelvic and perineal pain
CPT/HCPCS: 36415; 76801; 76817; 81001; 84702; 85025; Z7502; Z7610

== ENCOUNTER 2019-03-27 18:38 | Emergency (ER) | payer OTHER ==
[~2019-03-27] VITALS: Ht 165.1 cm; Wt 61.9 kg
[2019-03-27 18:41] VITALS: Ht 165.1 cm; Wt 61.9 kg
[2019-03-27] MEDS ORDERED: ACETAMINOPHEN 325 MG TAB PO ONE (19:30)
[2019-03-27] MEDS ORDERED: ACET500C5 PO (20:17)
[2019-03-27] MEDS ORDERED: IBUP-1561 PO (20:18)
[2019-03-27] MEDS ORDERED: ACET1TAB40 PO (20:18)
--- NOTE | 2019-03-27 20:22 | ERD ---
ER Documentation Chief Complaint Chief Complaint L sided burning CWP, worse w/ breathing. mild SOB, no n/v HPI 28-year-old female presents with left chest wall pain over the last 2 days. I nitially she had some burning pain but that resolved. Its worse with breathing, movement and coughing. She denies vomiting, abdominal pain. She is in the process of a incomplete miscarriage. She is being followed by OB who is allowing the miscarriage to resolve spontaneously. She has regular follow-up. She has no current bleeding, fevers, urinary complaints, discharge. ROS All systems reviewed and are negative except as per history of present illness. Medications Home Meds Active Scripts Ibuprofen* (Motrin*) 400 Mg Tab, 400 MG PO Q6, #15 TAB Prov:AAMIR CARBAJAL MD 03/27/19 Acetaminophen with Codeine (Acetaminophen-Cod #3 Tablet) 1 Each Tablet, 1 TAB PO Q6H PRN for PAIN, #10 TAB Prov:AAMIR CARBAJAL MD 03/27/19 Cephalexin* (Keflex*) 500 Mg Capsule, 500 MG PO BID for 7 Days, CAP Prov:ROSE DYER PA-C 03/21/19 Acetaminophen* (Tylophen*) 500 Mg Capsule, 2 CAP PO Q8H PRN for PAIN AND OR ELEVATED TEMP, #20 CAP Prov:CECILIO GARNER 01/22/19 Hydroxyzine Hcl* (Hydroxyzine Hcl*) 50 Mg Tablet, 50 MG PO Q6H PRN for ANXIETY, #30 TAB Prov:PASAVI DAILEYAR F 01/11/19 Ibuprofen* (Motrin*) 600 Mg Tab, 600 MG PO Q6H PRN for PAIN AND OR ELEVATED TEMP, #30 TAB Prov:PASILAAVI JOYNERAR F 01/11/19 Baclofen* (Baclofen*) 10 Mg Tablet, 10 MG PO TID for 5 Days, #15 TAB Prov:JOSE GUADALUPE SUAREZ MD 08/29/18 Ibuprofen* (Motrin*) 400 Mg Tab, 400 MG PO Q8 for 5 Days, #15 TAB Prov:JOSE GUADALUPE SUAREZ MD 08/29/18 Ibuprofen* (Motrin*) 600 Mg Tab, 600 MG PO Q6H PRN for PAIN AND OR ELEVATED TEMP, #30 TAB Prov:LAURA DELA CRUZ NP 08/08/18 Tramadol HCl (Tramadol HCl) 50 Mg Tablet, 50 MG PO Q6 PRN for SEVERE PAIN LEVEL 7-10, #20 TAB Prov:EVANGELINA FELIX MUSICAL INSTRUMENT MAKER OR REPAIRER 06/15/18 Ibuprofen* (Motrin*) 600 Mg Tab, 600 MG PO Q6H PRN for PAIN AND OR ELEVATED TEMP, #30 TAB Prov:EVANGELINA FELIX MUSICAL INSTRUMENT MAKER OR REPAIRER 06/15/18 Cephalexin* (Keflex*) 500 Mg Capsule, 500 MG PO QID for 5 Days, CAP Prov:EVANGELINA FELIX MUSICAL INSTRUMENT MAKER OR REPAIRER 06/15/18 Diphenhydramine Hcl* (Benadryl*) 25 Mg Cap, 25 MG PO Q6, #30 CAP Prov:YFN ALTAMIRANO PA-C 05/12/18 Diphenhydramine Hcl/Zinc Acet (Benadryl Itch Stopping Crm) 28.3 Gm Cream.gm., 1 APPLIC TP TID, #1 TUB Prov:YFN ALTAMIRANO PA-C 05/12/18 Mupirocin* (Bactroban*) 2% -22 Gram Oint...g., 1 APPLIC TOP BID for 7 Days, EA Prov:YFN ALTAMIRANO PA-C 05/12/18 Ibuprofen* (Motrin*) 600 Mg Tab, 600 MG PO Q6, #30 TAB Prov:YFN ALTAMIRANO PA-C 05/12/18 Neomycin/Polymyxin/Hydrocort* (Cortisporin* Otic) 10 Ml Susp, 4 DROP LEFT EAR QID for 7 Days, EA Prov:JOSE GUADALUPE SUAREZ MD 01/10/18 Lorazepam* (Ativan*) 0.5 Mg Tablet, 0.5 MG PO Q8H PRN for ANXIETY, #10 TAB Prov:JOSE GUADALUPE SUAREZ MD 01/10/18 Meclizine Hcl* (Antivert*) 12.5 Mg Tab, 12.5 MG PO Q8 PRN for DIZZINESS for 5 Days, #15 TAB Prov:JOSE GUADALUPE SUAREZ MD 01/10/18 Oseltamivir Phosphate* (Tamiflu*) 75 Mg Capsule, 75 MG PO BID for 5 Days, CAP Prov:AAMIR CARBAJAL MD 11/21/17 Dextromethorphan Hb-Promethazine Hcl* (Promethazine DM* Syrup) 473 Ml Syrup, 5 ML PO Q6 PRN for COUGH for 5 Days, ML Prov:AAMIR CARBAJAL MD 11/21/17 Ibuprofen* (Motrin*) 400 Mg Tab, 400 MG PO Q6, #15 TAB Prov:AAMIR CARBAJAL MD 11/21/17 Alprazolam* (Xanax*) 0.25 Mg Tablet, 0.25 MG PO Q8H PRN for ANXIETY, #10 TAB Prov:EVANGELINA FELIX NP 03/08/17 Hydrocodone/Acetaminophen ([place] 5-325 Tablet) 1 Each Tablet, 1.5 TAB PO Q6H PRN for PAIN, #20 TAB Prov:SILVANA JURADO 12/30/16 Naproxen* (Naprosyn*) 500 Mg Tablet, 500 MG PO BID PRN for PAIN AND/OR INFLAMMATION, #30 TAB Prov:OLIMPIA ALBERTS PA-C 12/02/16 Acetaminophen* (Tylophen*) 500 Mg Capsule, 1 CAP PO Q6H PRN for PAIN AND OR ELEVATED TEMP, #30 CAP Prov:OLIMPIA ALBERTS PA-C 12/02/16 Tramadol HCl (Tramadol HCl) 50 Mg Tablet, 50 MG PO Q4 PRN for PAIN, #20 TAB Prov:OLIMPIA ALBERTS PA-C 12/02/16 Naproxen* (Naprosyn*) 500 Mg Tablet, 500 MG PO BID PRN for PAIN AND/OR INFLAMMATION, #30 TAB Prov:SARAH HIGGISN 10/11/16 Ibuprofen* (Motrin*) 600 Mg Tab, 600 MG PO Q6, #30 TAB Prov:OLIMPIA ALBERTS PA-C 05/25/16 Albuterol Sulfate* (Proair HFA*) 8.5 Gm Hfa.aer.ad, 2 PUFF INH Q4, #1 INHALER Prov:OLIMPIA ALBERTS PA-C 05/25/16 Azithromycin* (Zithromax*) 250 Mg Tablet, 250 MG PO .ALEX DIRECTED, #6 TAB TAKE 500 MG (2 TABS) THE FIRST DAY THEN 250 MG (1 TAB) DAYS 2-5 Prov:OLIMPIA ALBERTS PA-C 05/25/16 Loperamide Hcl* (Imodium*) 2 Mg Capsule, 2 MG PO .AFTER EA LOOSE BM PRN for DIARRHEA, #8 TAB Prov:ARISTEOOLIMPIA De Oliveira PA-C 05/25/16 Ondansetron Hcl* (Zofran*) 4 Mg Tablet, 4 MG PO Q6H for NAUSEA AND/OR VOMITING, #30 TAB Prov:ARISTEOOLIMPIA De Oliveira PA-C 05/25/16 Discontinued Scripts Acetaminophen* (Tylophen*) 500 Mg Capsule, 1 CAP PO Q6H PRN for PAIN AND OR ELEVATED TEMP, #20 CAP Prov:AAMIR CARBAJAL MD 03/27/19 Allergies Allergies: Coded Allergies: No Known Allergy (Unverified , 03/03/13) PMhx/Soc History of Surgery: Yes (left breast lump removal) Anesthesia Reaction: No Hx Neurological Disorder: No Hx Respiratory Disorders: No Hx Cardiac Disorders: No Hx Psychiatric Problems: Yes (ANXIETY AND DEPRESSION) Hx Miscellaneous Medical Probl: Yes (l. breast mass, anxiety depression ) Hx Alcohol Use: No Hx Substance Use: No Hx Tobacco Use: No FmHx Family History: No diabetes, No coronary disease, No other Physical Exam Vitals Vital Signs Date Temp Pulse Resp B/P (MAP) Pulse Ox O2 O2 Flow FiO2 Time Delivery Rate 03/27/19 98.0 71 18 106/59 98 Room Air 20:29 (75) 03/27/19 98.5 78 16 133/70 100 18:41 (91) Physical Exam Const: No acute distress Head: Atraumatic Eyes: Normal Conjunctiva ENT: Normal External Ears, Nose and Mouth. Neck: Full range of motion. No meningismus. Resp: Clear to auscultation bilaterally Cardio: Regular rate and rhythm, no murmurs. Reproducible left costochondral pain. Abd: Soft, non tender, non distended. Normal bowel sounds Skin: No petechiae or rashes Back: No midline or flank tenderness Ext: No cyanosis, or edema. No calf swelling or Homans sign. Neur: Awake and alert Psych: Normal Mood and Affect Results 24 hrs Current Medications Medications Dose Sig/Tony Start Time Status Last (Trade) Ordered Route PRN Stop Time Admin Dose Reason Admin 650 mg ONCE ONCE 03/27/19 DC 03/27/19 Acetaminophen PO 19:30 03/27/19 19:33 (Tylenol 19:31 Tab) Procedures/MDM Patient presents with left-sided chest wall pain which is reproducible and worse with movement and pleuritic. EKG: Rate/Rhythm: Normal Sinus Rhythm. Rate equals 77 QRS, ST, T-waves: No changes consistent w/ acute ischemia Impression: No evidence of ischemia or arrhythmia Chest X-ray 1V Interpreted by me: Soft Tissue: No acute abnormalities Bones: No acute abnormalities Mediastinum/Cardiac Silhouette/Lungs: No acute abnormalities. Impression- normal 1 view chest x-ray She has signs and symptoms most consistent with costochondritis or chest wall strain. She is PERC negative. Doubt DVT, PE, there is no signs of pneumonia, hypoxemia, additional concerning signs or symptoms. She will be discharged home with a short course of Tylenol 3, ibuprofen, recommendations for continued OB follow-up for her in progress, return precautions for fevers, vomiting or abdominal pain, blood, new worsening symptoms or as directed. Departure Diagnosis: Primary Impression: Chest wall pain Condition: Stable Patient Instructions: Chest Wall Pain, Costochondritis Referrals: DOCTOR,NOT ON STAFF (PCP) Additional Instructions: X-ray and EKG normal. Likely chest wall strain or costochondritis. Recheck for new worsening symptoms-fevers, blood, new or worsening symptoms with primary care doctor. AAMIR CARBAJAL MD Mar 27, 2019 20:22
[2019-03-27 20:29] VITALS: BP 106/59; PULSE 71; RESP 18
== END 2019-03-27 20:29 | disposition home or self-care (01) ==
LOC: FTE 18:38
DX: R07.89 Other chest pain (principal)
CPT/HCPCS: 71045; 93005; Z7502; Z7610